=== PATIENT | female | born 1995 | race African-American/Black ===

== ENCOUNTER 2017-09-06 22:09 | Emergency (ER) | payer OTHER ==
[2017-09-06] MEDS: diphenhydrAMINE 50 MG/ML VIAL IVP (22:49)
== END 2017-09-06 23:20 | disposition home or self-care (01) ==
LOC: ER 22:09
DX: G24.02 Drug induced acute dystonia (principal); F20.9 Schizophrenia, unspecified
CPT/HCPCS: 96374; 99284-25; J1200

== ENCOUNTER 2017-09-17 14:38 | Inpatient (IN) | payer SELFPAY, OTHER ==
[2017-09-17 15:13] LABS: ADD MAN DIFF? NO
[2017-09-17 15:16] LABS: URINE HCG POC HCG NEGATIVE (Negative)
[2017-09-17 15:20] LABS: BASO % 1 % (0-3); EOS % 1 % (0-3); HEMATOCRIT 37.1 % (36.0-47.0); HEMOGLOBIN 12.4 g/dL (12.0-15.5); LYMPH # 3.4 x10^3/uL (1.0-4.8); LYMPH % 57 % (24-48); MEAN CORPUSCULAR HEMOGLOBIN 30 pg (25-35); MEAN CORPUSCULAR HGB CONC 34 g/dL (31-37); MEAN CORPUSCULAR VOLUME 90 fL (79-100); MONO # 0.4 x10^3/uL (0.0-1.1); MONO % 7 % (0-9); NEUT # 2.1 x10^3uL (1.8-7.7); NEUT % 35 % (31-73); PLATELET COUNT 207 x10^3/uL (140-400); RED BLOOD COUNT 4.12 x10^6/uL (3.50-5.40)
[2017-09-17 15:37] LABS: ACETAMIN < 2 mcg/ml (10-30); ETHANOL < 10 mg/dL (0-10); SALIC < 2.8 mg/dL (2.8-20.0)
[2017-09-17 15:39] LABS: ANION GAP 9 (6-14); BLOOD UREA NITROGEN 10 mg/dL (7-20); BUN/CREATININE RATIO 13 (6-20); CALCIUM 8.9 mg/dL (8.5-10.1); CARBON DIOXIDE 26 mmol/L (21-32); CHLORIDE 106 mmol/L (98-107); CREATININE 0.8 mg/dL (0.6-1.0); GFR 109.6; GLUCOSE 82 mg/dL (70-99); POTASSIUM 3.9 mmol/L (3.5-5.1); SODIUM 141 mmol/L (136-145)
[2017-09-17 15:41] LABS: BARBITURATES NEG (NEG); BENZODIAZEPINES NEG (NEG); CANNABINOIDS POS (NEG); COCAINE NEG (NEG); METHADONE NEG (NEG); OPIATES NEG (NEG); PHENCYCLIDINE NEG (NEG)
[2017-09-17 15:42] LABS: ALBUMIN 3.8 g/dL (3.4-5.0); ALK PHOS 96 U/L (46-116); ALT (SGPT) 12 U/L (14-59); AST (SGOT) 16 U/L (15-37); MAGNESIUM 2.1 mg/dL (1.8-2.4); TOTAL BILIRUBIN 0.6 mg/dL (0.2-1.0); TOTAL PROTEIN 7.7 g/dL (6.4-8.2)
[2017-09-17 15:44] LABS: AMPHETAMINE/METHAMPHETAMINE NEG (NEG); ETHANOL, URINE NEG (NEG)
[2017-09-17 15:46] LABS: THYROID STIM HORMONE (TSH) 0.693 uIU/mL (0.358-3.74)
[2017-09-17 15:48] LABS: CARBAM < 0.5 mcg/mL (4.0-12.0)
[2017-09-17 16:07] LABS: INR 1.1 (0.8-1.1); PARTIAL THROMBOPLASTIN TIME 29 SEC (24-38); PROTHROMBIN TIME PATIENT 13.3 SEC (11.7-14.0)
[2017-09-17] MEDS ORDERED: ONDANSETRON PF 4 MG/2 ML VIAL. IV (18:00)
[2017-09-17] MEDS ORDERED: diphenhydrAMINE HCL 25 MG CAPSULE PO (21:15)
[2017-09-17] MEDS ORDERED: ZOLPIDEM 5 MG TABLET. PO (21:15)
[2017-09-19] MEDS: HYDROcodone/APAP 5/325MG 1 TAB TABLET PO (09:12)
[2017-09-19] MEDS: ENOXAPARIN 40 MG/0.4 ML SYRINGE. SQ (17:22)
[2017-09-19] MEDS: OXcarbazepine 300 MG TABLET PO (20:29)
[2017-09-19] MEDS: FAMOTIDINE 20 MG TABLET. PO (20:30)
[2017-09-20] MEDS: OXcarbazepine 300 MG TABLET PO ×2 (10:16→20:50)
[2017-09-20] MEDS: CITALOPRAM 20 MG TABLET. PO (10:16)
[2017-09-20] MEDS: ENOXAPARIN 40 MG/0.4 ML SYRINGE. SQ (17:00)
[2017-09-20] MEDS: FAMOTIDINE 20 MG TABLET. PO (20:50)
[2017-09-21] MEDS: OXcarbazepine 300 MG TABLET PO (07:56)
[2017-09-21] MEDS: CITALOPRAM 20 MG TABLET. PO (07:56)
[2017-09-21] MEDS: ENOXAPARIN 40 MG/0.4 ML SYRINGE. SQ (14:58)
== END 2017-09-21 16:15 | disposition home or self-care (01) | DRG 918 ==
LOC: 6 SOUTH 09-18 19:42 → ER 14:38 → ED HOLD 17:31
DX: T39.312A Poisoning by propionic acid derivatives, intentional self-harm, initial encounter (principal); R45.851 Suicidal ideations; F25.0 Schizoaffective disorder, bipolar type; F32.9 Major depressive disorder, single episode, unspecified; T42.1X2A Poisoning by iminostilbenes, intentional self-harm, initial encounter; Z82.49 Family history of ischemic heart disease and other diseases of the circulatory system; Z91.5 Personal history of self-harm; F12.90 Cannabis use, unspecified, uncomplicated; F41.9 Anxiety disorder, unspecified; Z88.8 Allergy status to other drugs, medicaments and biological substances; Y92.89 Other specified places as the place of occurrence of the external cause
CPT/HCPCS: 36415; 80053; 80156; 80307; 80329; 81025; 83735; 84443; 85025; 85610; 85730; 99285; 99285-25; G0480; J1650

== ENCOUNTER 2017-12-10 22:03 | Inpatient (IN) | payer SELFPAY, OTHER ==
[2017-12-10 22:23] LABS: URINE HCG POC HCG NEGATIVE (Negative)
[2017-12-10 22:25] LABS: BILIRUBIN,URINE SMALL (NEG); CLARITY,URINE CLOUDY; COLOR,URINE AMBER; GLUCOSE,URINE NEGATIVE (NEG); NITRITE,URINE NEGATIVE (NEG); PROTEIN,URINE NEGATIVE (NEG-TRACE); UROBILINOGEN,URINE 0.2 mg/dL (0.2 mg/dL)
[2017-12-10 22:32] LABS: ADD MAN DIFF? NO
[2017-12-10 22:34] LABS: BASO # 0.1 x10^3/uL (0.0-0.2); BASO % 1 % (0-3); EOS % 0 % (0-3); HEMATOCRIT 43.9 % (36.0-47.0); HEMOGLOBIN 14.7 g/dL (12.0-15.5); LYMPH # 2.8 x10^3/uL (1.0-4.8); LYMPH % 38 % (24-48); MEAN CORPUSCULAR HEMOGLOBIN 31 pg (25-35); MEAN CORPUSCULAR HGB CONC 34 g/dL (31-37); MEAN CORPUSCULAR VOLUME 91 fL (79-100); MONO # 0.5 x10^3/uL (0.0-1.1); MONO % 6 % (0-9); NEUT # 4.1 x10^3uL (1.8-7.7); NEUT % 55 % (31-73); PLATELET COUNT 230 x10^3/uL (140-400); RED BLOOD COUNT 4.81 x10^6/uL (3.50-5.40); RED CELL DISTRIBUTION WIDTH 13.8 % (11.5-14.5); WHITE BLOOD COUNT 7.4 x10^3/uL (4.0-11.0)
[2017-12-10 22:39] LABS: BACTERIA,URINE MANY /HPF (0-FEW); RBC,URINE 0 /HPF (0-2); SQUAMOUS EPITHELIAL CELL,UR MOD /LPF
[2017-12-10 22:40] LABS: BARBITURATES NEG (NEG); BENZODIAZEPINES NEG (NEG); CANNABINOIDS POS (NEG); COCAINE NEG (NEG); METHADONE NEG (NEG); OPIATES NEG (NEG); PHENCYCLIDINE NEG (NEG)
[2017-12-10 22:41] LABS: AMPHETAMINE/METHAMPHETAMINE NEG (NEG); ETHANOL, URINE NEG (NEG)
[2017-12-10 22:45] LABS: ANION GAP 12 (6-14); BLOOD UREA NITROGEN 11 mg/dL (7-20); BUN/CREATININE RATIO 12 (6-20); CALCIUM 9.9 mg/dL (8.5-10.1); CARBON DIOXIDE 24 mmol/L (21-32); CHLORIDE 103 mmol/L (98-107); CREATININE 0.9 mg/dL (0.6-1.0); GFR 95.6; GLUCOSE 85 mg/dL (70-99); SODIUM 139 mmol/L (136-145)
[2017-12-10 22:49] LABS: ALBUMIN 4.3 g/dL (3.4-5.0); ALBUMIN/GLOBULIN RATIO 0.9 (1.0-1.7); ALK PHOS 122 U/L (46-116); ALT (SGPT) 21 U/L (14-59); AST (SGOT) 13 U/L (15-37); TOTAL BILIRUBIN 0.8 mg/dL (0.2-1.0); TOTAL PROTEIN 9.2 g/dL (6.4-8.2)
[2017-12-10 22:51] LABS: ACETAMIN < 2 mcg/ml (10-30); ETHANOL < 10 mg/dL (0-10); SALIC < 2.8 mg/dL (2.8-20.0)
[2017-12-11] MEDS: ZIPRASIDONE 20 MG CAPSULE PO (00:36)
[2017-12-11] MEDS: IV NORMAL SALINE 1000ML BAG 1,000 ML IV (00:36)
[2017-12-11] MEDS ORDERED: 0.9 % SODIUM CHLORIDE 10 ML DISP.SYRIN. IV (01:30)
[2017-12-11 15:44] LABS: ADD MAN DIFF? NO
[2017-12-11 15:48] LABS: BASO # 0.1 x10^3/uL (0.0-0.2); BASO % 1 % (0-3); EOS # 0.1 x10^3/uL (0.0-0.7); EOS % 2 % (0-3); HEMATOCRIT 36.4 % (36.0-47.0); HEMOGLOBIN 12.1 g/dL (12.0-15.5); LYMPH # 3.4 x10^3/uL (1.0-4.8); LYMPH % 61 % (24-48); MEAN CORPUSCULAR HEMOGLOBIN 30 pg (25-35); MEAN CORPUSCULAR HGB CONC 33 g/dL (31-37); MEAN CORPUSCULAR VOLUME 92 fL (79-100); MONO # 0.5 x10^3/uL (0.0-1.1); MONO % 9 % (0-9); NEUT # 1.4 x10^3uL (1.8-7.7); NEUT % 26 % (31-73); PLATELET COUNT 192 x10^3/uL (140-400); RED BLOOD COUNT 3.98 x10^6/uL (3.50-5.40); RED CELL DISTRIBUTION WIDTH 13.9 % (11.5-14.5); WHITE BLOOD COUNT 5.5 x10^3/uL (4.0-11.0)
[2017-12-11 16:19] LABS: FREE T4 1.11 ng/dL (0.76-1.46)
[2017-12-11 16:19] LABS: ALBUMIN 3.1 g/dL (3.4-5.0); ALBUMIN/GLOBULIN RATIO 0.9 (1.0-1.7); ALK PHOS 100 U/L (46-116); ALT (SGPT) 11 U/L (14-59); ANION GAP 7 (6-14); AST (SGOT) 11 U/L (15-37); BLOOD UREA NITROGEN 10 mg/dL (7-20); BUN/CREATININE RATIO 13 (6-20); CALCIUM 8.8 mg/dL (8.5-10.1); CARBON DIOXIDE 25 mmol/L (21-32); CHLORIDE 107 mmol/L (98-107); CREATININE 0.8 mg/dL (0.6-1.0); GFR 109.6; GLUCOSE 99 mg/dL (70-99); POTASSIUM 4.1 mmol/L (3.5-5.1); SODIUM 139 mmol/L (136-145); TOTAL BILIRUBIN 0.5 mg/dL (0.2-1.0); TOTAL PROTEIN 6.6 g/dL (6.4-8.2)
[2017-12-11] MEDS: ENOXAPARIN 40 MG/0.4 ML SYRINGE. SQ (16:22)
[2017-12-11] MEDS: ACETAMINOPHEN 325 MG TABLET. PO (20:10)
[2017-12-12] MEDS: ACETAMINOPHEN 325 MG TABLET. PO (13:16)
[2017-12-12] MEDS: ENOXAPARIN 40 MG/0.4 ML SYRINGE. SQ (14:50)
== END 2017-12-12 15:53 | DRG 885 ==
LOC: 5 NORTH 12-11 01:32 → ER 22:03
DX: F31.9 Bipolar disorder, unspecified (principal); R45.851 Suicidal ideations; F22 Delusional disorders; R44.0 Auditory hallucinations; F20.9 Schizophrenia, unspecified; F41.9 Anxiety disorder, unspecified; F12.10 Cannabis abuse, uncomplicated; Z88.8 Allergy status to other drugs, medicaments and biological substances; Z82.49 Family history of ischemic heart disease and other diseases of the circulatory system
CPT/HCPCS: 36415; 70450; 71046; 80053; 80307; 80329; 81001; 81025; 84439; 84443; 85025; 99285; 99285-25; G0480; J1650; J7030

== ENCOUNTER 2018-05-27 10:36 | Inpatient (IN) | payer OTHER ==
[~2018-05-27] VITALS: Ht 162.6 cm; Wt 59.0 kg
[~2018-05-27 10:36] MED LIST: ESCI10TA2 PO; OXCA150T19 PO
[2018-05-27 11:47] LABS: BILIRUBIN,URINE NEGATIVE (NEG); CLARITY,URINE TURBID; COLOR,URINE YELLOW; NITRITE,URINE POSITIVE (NEG); PROTEIN,URINE NEGATIVE (NEG-TRACE); UROBILINOGEN,URINE 0.2 mg/dL (0.2 mg/dL)
[2018-05-27 11:50] LABS: U PREG PATIENT NEGATIVE (NEG)
[2018-05-27 11:53] LABS: BACTERIA,URINE MANY /HPF (0-FEW); SQUAMOUS EPITHELIAL CELL,UR MANY /LPF; WBC,URINE TNTC /HPF (0-4)
[2018-05-27 11:54] LABS: RBC,URINE FOBS /HPF (0-2)
[2018-05-27 11:55] LABS: BARBITURATES NEG (NEG); BENZODIAZEPINES POS (NEG); CANNABINOIDS POS (NEG); COCAINE NEG (NEG); METHADONE NEG (NEG); OPIATES NEG (NEG); PHENCYCLIDINE NEG (NEG)
[2018-05-27 11:57] LABS: AMPHETAMINE/METHAMPHETAMINE NEG (NEG)
[2018-05-27 12:01] LABS: BASO # 0.1 x10^3/uL (0.0-0.2); BASO % 1 % (0-3); EOS % 1 % (0-3); HEMATOCRIT 38.8 % (36.0-47.0); HEMOGLOBIN 13.2 g/dL (12.0-15.5); LYMPH # 3.3 x10^3/uL (1.0-4.8); LYMPH % 50 % (24-48); MEAN CORPUSCULAR HEMOGLOBIN 31 pg (25-35); MEAN CORPUSCULAR HGB CONC 34 g/dL (31-37); MEAN CORPUSCULAR VOLUME 90 fL (79-100); MONO # 0.4 x10^3/uL (0.0-1.1); MONO % 6 % (0-9); NEUT # 2.8 x10^3uL (1.8-7.7); NEUT % 42 % (31-73); PLATELET COUNT 229 x10^3/uL (140-400); RED BLOOD COUNT 4.32 x10^6/uL (3.50-5.40); RED CELL DISTRIBUTION WIDTH 13.9 % (11.5-14.5); WHITE BLOOD COUNT 6.7 x10^3/uL (4.0-11.0)
[2018-05-27 12:09] LABS: CALCIUM 9.6 mg/dL (8.5-10.1); CREATININE 0.8 mg/dL (0.6-1.0); GFR 108.5; POTASSIUM 4.4 mmol/L (3.5-5.1)
[2018-05-27 12:12] LABS: SALIC 3.5 mg/dL (2.8-20.0)
[2018-05-27 12:13] LABS: ACETAMIN < 2 mcg/ml (10-30); ETHANOL < 10 mg/dL (0-10)
[2018-05-27 12:15] LABS: ALBUMIN 3.8 g/dL (3.4-5.0); DIRECT BILIRUBIN 0.1 mg/dL (0.0-0.2); TOTAL BILIRUBIN 0.4 mg/dL (0.2-1.0); TOTAL PROTEIN 8.1 g/dL (6.4-8.2)
[2018-05-27] MEDS ORDERED: CIPROFLOXACIN HCL 250 MG TABLET. PO ONE ×2 (12:30→15:15)
--- NOTE | 2018-05-27 14:42 | PHYS DOC ---
Past Medical History Past Medical History: Anxiety, Bipolar, Depression, Schizophrenia, Other Additional Past Medical Histor: Suicidal attmpt with pills X2 Past Surgical History: Other Additional Past Surgical Histo: eye surgery as child, d & c Alcohol Use: Occasionally Drug Use: None Adult General Chief Complaint Chief Complaint: PSYCH EVALUATION HPI HPI Patient is a 23 year old female who presents with pinning of homicidal ideation. Patient she wants to shoot her mother neighbors because the talking to her through the apartment wall when she goes to the bathroom or she is side of the living area. Patient states she hearing voices and syncope point constantly. Patient states she had history of suicidal ideation previously but at this time doesn't have any suicidal ideation. She complaining of chronic upper back and neck pain for years without new changes. Patient denies smoking and drinking and using drugs. Review of Systems Review of Systems Constitutional: Denies fever or chills [] Eyes: Denies change in visual acuity, redness, or eye pain [] HENT: Denies nasal congestion or sore throat [] Respiratory: Denies cough or shortness of breath [] Cardiovascular: No additional information not addressed in HPI [] GI: Denies abdominal pain, nausea, vomiting, bloody stools or diarrhea [] : Denies dysuria or hematuria [] Musculoskeletal: Denies back pain or joint pain [] Integument: Denies rash or skin lesions [] Neurologic: Denies headache, focal weakness or sensory changes [] Endocrine: Denies polyuria or polydipsia [] All other systems were reviewed and found to be within normal limits, except as documented in this note. Current Medications Current Medications Current Medications Medications (Trade) Dose Ordered Sig/Ida Start Time Stop Time Status Last Admin Dose Admin Acetaminophen (Tylenol) 650 mg PRN Q6HRS PRN 05/27/18 14:45 Al Hydroxide/Mg Hydroxide (Mylanta Plus Xs) 30 ml PRN Q3HRS PRN 05/27/18 14:45 Alprazolam (Xanax) 0.5 mg PRN Q8HRS PRN 05/27/18 14:45 UNV Bisacodyl (Dulcolax Supp) 10 mg PRN DAILY PRN 05/27/18 14:45 Calcium Carbonate/ Glycine (Tums) 500 mg PRN Q3HRS PRN 05/27/18 14:45 Ciprofloxacin (Cipro) 500 mg BID 05/27/18 21:00 UNV Ibuprofen (Motrin) 400 mg PRN Q6HRS PRN 05/27/18 14:45 UNV Ketorolac Tromethamine (Toradol 15mg Vial) 15 mg PRN Q6HRS PRN 05/27/18 14:45 06/01/18 14:44 UNV Lorazepam (Ativan) 2 mg PRN Q4HRS PRN 05/27/18 14:45 UNV Magnesium Hydroxide (Milk Of Magnesia) 2,400 mg PRN Q12HR PRN 05/27/18 14:45 Morphine Sulfate (Morphine Sulfate) 2 mg PRN Q2HR PRN 05/27/18 14:45 UNV Ondansetron HCl (Zofran) 4 mg PRN Q6HRS PRN 05/27/18 14:45 UNV Oxycodone HCl (Roxicodone) 5 mg PRN Q3HRS PRN 05/27/18 14:45 UNV Prochlorperazine (Compazine) 25 mg PRN Q12HR PRN 05/27/18 14:45 UNV Prochlorperazine Edisylate (Compazine) 10 mg PRN Q6HRS PRN 05/27/18 14:45 UNV Zolpidem Tartrate (Ambien) 5 mg PRN QHS PRN 05/27/18 14:45 UNV Allergies Allergies Allergies Coded Allergies Type Severity Reaction Last Updated Verified haloperidol Allergy Severe lock jaw 09/17/17 Yes Physical Exam Physical Exam Constitutional: Well nourished, mild distress, non-toxic appearance. [] HENT: Normocephalic, atraumatic Eyes: PERRLA, EOMI, conjunctiva normal, no discharge. [] Neck: Normal range of motion, no tenderness, supple, no stridor. [] Cardiovascular:Heart rate regular rhythm, no murmur [] Lungs & Thorax: Bilateral breath sounds clear to auscultation [] Abdomen: Bowel sounds normal, soft, no tenderness, no masses, no pulsatile masses. [] Skin: Warm, dry, no erythema, no rash. [] Back: No tenderness, no CVA tenderness. [] Extremities: No tenderness, no cyanosis, no clubbing, ROM intact, no edema. [] Neurologic: Alert and oriented X 3, normal motor function, normal sensory function, no focal deficits noted. [] Psychologic: Affect anxious homicidal ideation and hallucination Current Patient Data Vital Signs Vital Signs Date Time Temp Pulse Resp B/P (MAP) Pulse Ox O2 Delivery O2 Flow Rate FiO2 05/27/18 11:22 98.7 75 18 116/76 (89) 98 Room Air 98.7 Lab Values Laboratory Tests Test 05/27/18 11:29 05/27/18 11:39 05/27/18 11:50 Urine Collection Type Void Urine Color Yellow Urine Clarity Turbid Urine pH 6.0 Urine Specific [place] 1.025 Urine Protein Negative mg/dL (NEG-TRACE) Urine Glucose (UA) Negative mg/dL (NEG) Urine Ketones (Stick) Negative mg/dL (NEG) Urine Blood Small (NEG) Urine Nitrite Positive (NEG) Urine Bilirubin Negative (NEG) Urine Urobilinogen Dipstick 0.2 mg/dL (0.2 mg/dL) Urine Leukocyte Esterase Moderate (NEG) Urine RBC Fobs /HPF (0-2) Urine WBC Tntc /HPF (0-4) Urine Squamous Epithelial Cells Many /LPF Urine Bacteria Many /HPF (0-FEW) Urine Mucus Marked /LPF Urine Test Negative (NEG) Urine Opiates Screen Neg (NEG) Urine Methadone Screen Neg (NEG) Urine Barbiturates Neg (NEG) Urine Phencyclidine Screen Neg (NEG) Urine Amphetamine/Methamphetamine Neg (NEG) Urine Benzodiazepines Screen Pos (NEG) Urine Cocaine Screen Neg (NEG) Urine Cannabinoids Screen Pos (NEG) Urine Ethyl Alcohol Neg (NEG) POC Urine HCG, Qualitative Hcg negative (Negative) White Blood Count 6.7 x10^3/uL (4.0-11.0) Red Blood Count 4.32 x10^6/uL (3.50-5.40) Hemoglobin 13.2 g/dL (12.0-15.5) Hematocrit 38.8 % (36.0-47.0) Mean Corpuscular Volume 90 fL (79-100) Mean Corpuscular Hemoglobin 31 pg (25-35) Mean Corpuscular Hemoglobin Concent 34 g/dL (31-37) Red Cell Distribution Width 13.9 % (11.5-14.5) Platelet Count 229 x10^3/uL (140-400) Neutrophils (%) (Auto) 42 % (31-73) Lymphocytes (%) (Auto) 50 % (24-48) H Monocytes (%) (Auto) 6 % (0-9) Eosinophils (%) (Auto) 1 % (0-3) Basophils (%) (Auto) 1 % (0-3) Neutrophils # (Auto) 2.8 x10^3uL (1.8-7.7) Lymphocytes # (Auto) 3.3 x10^3/uL (1.0-4.8) Monocytes # (Auto) 0.4 x10^3/uL (0.0-1.1) Eosinophils # (Auto) 0.0 x10^3/uL (0.0-0.7) Basophils # (Auto) 0.1 x10^3/uL (0.0-0.2) Sodium Level 141 mmol/L (136-145) Potassium Level 4.4 mmol/L (3.5-5.1) Chloride Level 105 mmol/L (98-107) Carbon Dioxide Level 30 mmol/L (21-32) Anion Gap 6 (6-14) Blood Urea Nitrogen 8 mg/dL (7-20) Creatinine 0.8 mg/dL (0.6-1.0) Estimated GFR (Cockcroft-Gault) 108.5 Glucose Level 87 mg/dL (70-99) Calcium Level 9.6 mg/dL (8.5-10.1) Total Bilirubin 0.4 mg/dL (0.2-1.0) Direct Bilirubin 0.1 mg/dL (0.0-0.2) Aspartate Amino Transferase (AST) 15 U/L (15-37) Alanine Aminotransferase (ALT) 13 U/L (14-59) L Alkaline Phosphatase 114 U/L (46-116) Total Protein 8.1 g/dL (6.4-8.2) Albumin 3.8 g/dL (3.4-5.0) Salicylates Level 3.5 mg/dL (2.8-20.0) Salicylate Last Dose Date Unknown Salicylate Last Dose Time Unknown Acetaminophen Level < 2 mcg/ml (10-30) L Acetaminophen Last Dose Date Unknown Acetaminophen Last Dose Time Unknown Ethyl Alcohol Level < 10 mg/dL (0-10) Laboratory Tests 05/27/18 11:50 Laboratory Tests 05/27/18 11:50 EKG EKG [] Radiology/Procedures Radiology/Procedures [] Course & Med Decision Making Course & Med Decision Making Pertinent Labs reviewed. (See chart for details) Evaluation of patient in ER showed 23-year-old female patient with complaining of hallucination and homicidal ideation. Patient didn't have suicidal ideation. Patient had unremarkable physical exam except for hallucination and lab showed UTI. Patient was evaluated by psychiatric assessment team criteria for inpatient treatment but did was not available psychiatric bed. Plan to admit patient for inpatient treatment in this hospital and look for psychiatric bed tomorrow. Dr. Angulo accepted admission at 1436. Dragon Disclaimer Dragon Disclaimer This electronic medical record was generated, in whole or in part, using a voice recognition dictation system. Departure Departure Impression: Primary Impression: Acute psychosis Additional Impressions: Urinary tract infection Hallucination Homicidal ideation Disposition: ADMITTED INPATIENT Admitting Physician: Leanna Angulo (Accepted admission at 1436) Condition: IMPROVED Referrals: REMINGTON NORTON (PCP) Scripts No Active Prescriptions or Reported Meds Problem Qualifiers ROMEL MCGEE MD May 27, 2018 14:42
[2018-05-27] MEDS ORDERED: KETOROLAC 15 MG/ML VIAL. IV PRN (14:45)
[2018-05-27] MEDS ORDERED: ONDANSETRON PF 4 MG/2 ML VIAL. IV PRN (14:45)
[2018-05-27] MEDS ORDERED: IBUPROFEN 400 MG TABLET. PO PRN (14:45)
[2018-05-27] MEDS ORDERED: MAG HYDROX/ALUMINUM HYD/SIMETH 30 ML ORAL.SUSP PO PRN (14:45)
[2018-05-27] MEDS ORDERED: CALCIUM CARBONATE 500 MG TAB.CHEW PO PRN (14:45)
[2018-05-27] MEDS ORDERED: MAGNESIUM HYDROXIDE 2,400 MG/30 ML ORAL.SUSP. PO PRN (14:45)
[2018-05-27] MEDS ORDERED: ZOLPIDEM 5 MG TABLET. PO PRN (14:45)
[2018-05-27] MEDS ORDERED: PROCHLORPERAZINE 25 MG SUPP.RECT. PR PRN (14:45)
[2018-05-27] MEDS ORDERED: oxyCODONE IR 5 MG TABLET PO PRN (14:45)
[2018-05-27] MEDS ORDERED: PROCHLORPERAZINE 10 MG/2 ML VIAL. IV PRN (14:45)
[2018-05-27] MEDS ORDERED: MORPHINE SULFATE 2 MG/ML VIAL. IV PRN (14:45)
[2018-05-27] MEDS ORDERED: BISACODYL 10 MG SUPP.RECT. PR PRN (14:45)
[2018-05-27] MEDS ORDERED: ACETAMINOPHEN 325 MG TABLET. PO PRN (14:45)
[2018-05-27] MEDS ORDERED: ALPRAZolam 0.5 MG TABLET PO PRN (14:45)
--- NOTE | 2018-05-27 14:50 | PDOC1 ---
History and Physical Date of Admission Date of Admission DATE: 05/27/18 TIME: 14:45 Identification/Chief Complaint Chief Complaint Homicidal and suicidal Source Source: Caregiver, Chart review, Patient History of Present Illness History of Present Illness [age]-year-old -[place] female, seen at the ER with no one at bedside. Apparently history of clau, was last here December 2017 for the same, was discharged to psych inpatient facility. She claims she stayed [place] a week, and RSI only a few days - was dcd about December 2017. Comes in because of homicidal ideation towards her neighbors, history of past suicide attempts but not currently. Lives at home with mom. She claims she would overdose on pills. She has lockjaw in terms of Haldol listed as her allergy. She is cooperative, no emesis, regular food tray on table. Seen by Seema at ER Monday, no beds available hence admitted. UTI on incidental findings got Cipro at the ER. she claims she hears voices telling her to do things Past Medical History Pulmonary: No pertinent hx Psych: Anxiety, Addictions, Bipolar, Depression, Psychosis, Other Past Surgical History Past Surgical History: Other (breast reduction sx) Family History Family History: Hypertension, Other (depression) Social History Smoke: No ALCOHOL: none Drugs: Marijuana Current Problem List Problem List Problems Medical Problems: (1) Acute psychosis Status: Acute Current Medications Current Medications Current Medications Ciprofloxacin (Cipro) 250 mg 1X ONCE PO Last administered on 05/27/18at 14:34; Start 05/27/18 at 12:30; Stop 05/27/18 at 12:31; Status DC Active Scripts Active No Active Prescriptions or Reported Medications Allergies Allergies: Coded Allergies: haloperidol (Verified Allergy, Severe, lock jaw, 09/17/17) ROS Review of System A 14 point ROS was completed with the following noted as positive: Other systems reviewed and negative. \CONSTITUTIONAL: No fever or chills EYES: No recent changes SKIN: No rash or itching CARDIOVASCULAR: No chest pain, syncope, palpitations, or edema RESPIRATORY: No SOB or cough GASTROINTESTINAL: No nausea, vomiting or abdominal pain NEUROLOGICAL: No headaches or weakness ENDOCRINE: No cold or heat intolerance GENITOURINARY: No urgency or frequency of urination MUSCULOSKELETAL: No back pain or joint pain LYMPHATICS: No enlarged lymph nodes PSYCHIATRIC: No anxiety or depression Physical Exam General: Alert, Oriented X3, Cooperative, No acute distress HEENT: Atraumatic, EOMI Lungs: Clear to auscultation, Normal air movement Heart: S1S2, RRR, no thrills, no rubs, no gallops, no murmurs Cardiovascular: S1, S2 Breasts: Normal, Rt breast nml w/o mass, Lt breast nml w/o mass, Nipples normal Abdomen: Normal bowel sounds, Soft, No tenderness, No hepatosplenomegaly, No masses Rectal Exam: not examined PELVIC: Nml ext genitalia Extremities: No clubbing, No cyanosis, No edema, Normal pulses, No tenderness/ swelling Skin: No rashes, No breakdown, No significant lesion Neuro: Normal gait, Normal speech, Strength at 5/5 X4 ext, Normal tone, Sensation intact, Cranial nerves 3-12 NL, Reflexes 2+ Psych/Mental Status: Mental status NL, Mood NL Vitals Vitals Vital Signs Date Time Temp Pulse Resp B/P (MAP) Pulse Ox O2 Delivery O2 Flow Rate FiO2 05/27/18 11:22 98.7 75 18 116/76 (89) 98 Room Air 98.7 Labs Labs Laboratory Tests Test 05/27/18 11:29 05/27/18 11:39 05/27/18 11:50 Urine Collection Type Void Urine Color Yellow Urine Clarity Turbid Urine pH 6.0 Urine Specific [place] 1.025 Urine Protein Negative mg/dL (NEG-TRACE) Urine Glucose (UA) Negative mg/dL (NEG) Urine Ketones (Stick) Negative mg/dL (NEG) Urine Blood Small (NEG) Urine Nitrite Positive (NEG) Urine Bilirubin Negative (NEG) Urine Urobilinogen Dipstick 0.2 mg/dL (0.2 mg/dL) Urine Leukocyte Esterase Moderate (NEG) Urine RBC Fobs /HPF (0-2) Urine WBC Tntc /HPF (0-4) Urine Squamous Epithelial Cells Many /LPF Urine Bacteria Many /HPF (0-FEW) Urine Mucus Marked /LPF Urine Test Negative (NEG) Urine Opiates Screen Neg (NEG) Urine Methadone Screen Neg (NEG) Urine Barbiturates Neg (NEG) Urine Phencyclidine Screen Neg (NEG) Urine Amphetamine/Methamphetamine Neg (NEG) Urine Benzodiazepines Screen Pos (NEG) Urine Cocaine Screen Neg (NEG) Urine Cannabinoids Screen Pos (NEG) Urine Ethyl Alcohol Neg (NEG) Bedside Urine HCG, Qualitative Hcg negative (Negative) White Blood Count 6.7 x10^3/uL (4.0-11.0) Red Blood Count 4.32 x10^6/uL (3.50-5.40) Hemoglobin 13.2 g/dL (12.0-15.5) Hematocrit 38.8 % (36.0-47.0) Mean Corpuscular Volume 90 fL (79-100) Mean Corpuscular Hemoglobin 31 pg (25-35) Mean Corpuscular Hemoglobin Concent 34 g/dL (31-37) Red Cell Distribution Width 13.9 % (11.5-14.5) Platelet Count 229 x10^3/uL (140-400) Neutrophils (%) (Auto) 42 % (31-73) Lymphocytes (%) (Auto) 50 % (24-48) Monocytes (%) (Auto) 6 % (0-9) Eosinophils (%) (Auto) 1 % (0-3) Basophils (%) (Auto) 1 % (0-3) Neutrophils # (Auto) 2.8 x10^3uL (1.8-7.7) Lymphocytes # (Auto) 3.3 x10^3/uL (1.0-4.8) Monocytes # (Auto) 0.4 x10^3/uL (0.0-1.1) Eosinophils # (Auto) 0.0 x10^3/uL (0.0-0.7) Basophils # (Auto) 0.1 x10^3/uL (0.0-0.2) Sodium Level 141 mmol/L (136-145) Potassium Level 4.4 mmol/L (3.5-5.1) Chloride Level 105 mmol/L (98-107) Carbon Dioxide Level 30 mmol/L (21-32) Anion Gap 6 (6-14) Blood Urea Nitrogen 8 mg/dL (7-20) Creatinine 0.8 mg/dL (0.6-1.0) Estimated GFR (Cockcroft-Gault) 108.5 Glucose Level 87 mg/dL (70-99) Calcium Level 9.6 mg/dL (8.5-10.1) Total Bilirubin 0.4 mg/dL (0.2-1.0) Direct Bilirubin 0.1 mg/dL (0.0-0.2) Aspartate Amino Transf (AST/SGOT) 15 U/L (15-37) Alanine Aminotransferase (ALT/SGPT) 13 U/L (14-59) Alkaline Phosphatase 114 U/L (46-116) Total Protein 8.1 g/dL (6.4-8.2) Albumin 3.8 g/dL (3.4-5.0) Salicylates Level 3.5 mg/dL (2.8-20.0) Salicylate Last Dose Date Unknown Salicylate Last Dose Time Unknown Acetaminophen Level < 2 mcg/ml (10-30) Acetaminophen Last Dose Date Unknown Acetaminophen Last Dose Time Unknown Ethyl Alcohol Level < 10 mg/dL (0-10) Laboratory Tests Test 05/27/18 11:29 05/27/18 11:39 05/27/18 11:50 Urine Collection Type Void Urine Color Yellow Urine Clarity Turbid Urine pH 6.0 Urine Specific [place] 1.025 Urine Protein Negative mg/dL (NEG-TRACE) Urine Glucose (UA) Negative mg/dL (NEG) Urine Ketones (Stick) Negative mg/dL (NEG) Urine Blood Small (NEG) Urine Nitrite Positive (NEG) Urine Bilirubin Negative (NEG) Urine Urobilinogen Dipstick 0.2 mg/dL (0.2 mg/dL) Urine Leukocyte Esterase Moderate (NEG) Urine RBC Fobs /HPF (0-2) Urine WBC Tntc /HPF (0-4) Urine Squamous Epithelial Cells Many /LPF Urine Bacteria Many /HPF (0-FEW) Urine Mucus Marked /LPF Urine Test Negative (NEG) Urine Opiates Screen Neg (NEG) Urine Methadone Screen Neg (NEG) Urine Barbiturates Neg (NEG) Urine Phencyclidine Screen Neg (NEG) Urine Amphetamine/Methamphetamine Neg (NEG) Urine Benzodiazepines Screen Pos (NEG) Urine Cocaine Screen Neg (NEG) Urine Cannabinoids Screen Pos (NEG) Urine Ethyl Alcohol Neg (NEG) Bedside Urine HCG, Qualitative Hcg negative (Negative) White Blood Count 6.7 x10^3/uL (4.0-11.0) Red Blood Count 4.32 x10^6/uL (3.50-5.40) Hemoglobin 13.2 g/dL (12.0-15.5) Hematocrit 38.8 % (36.0-47.0) Mean Corpuscular Volume 90 fL (79-100) Mean Corpuscular Hemoglobin 31 pg (25-35) Mean Corpuscular Hemoglobin Concent 34 g/dL (31-37) Red Cell Distribution Width 13.9 % (11.5-14.5) Platelet Count 229 x10^3/uL (140-400) Neutrophils (%) (Auto) 42 % (31-73) Lymphocytes (%) (Auto) 50 % (24-48) Monocytes (%) (Auto) 6 % (0-9) Eosinophils (%) (Auto) 1 % (0-3) Basophils (%) (Auto) 1 % (0-3) Neutrophils # (Auto) 2.8 x10^3uL (1.8-7.7) Lymphocytes # (Auto) 3.3 x10^3/uL (1.0-4.8) Monocytes # (Auto) 0.4 x10^3/uL (0.0-1.1) Eosinophils # (Auto) 0.0 x10^3/uL (0.0-0.7) Basophils # (Auto) 0.1 x10^3/uL (0.0-0.2) Sodium Level 141 mmol/L (136-145) Potassium Level 4.4 mmol/L (3.5-5.1) Chloride Level 105 mmol/L (98-107) Carbon Dioxide Level 30 mmol/L (21-32) Anion Gap 6 (6-14) Blood Urea Nitrogen 8 mg/dL (7-20) Creatinine 0.8 mg/dL (0.6-1.0) Estimated GFR (Cockcroft-Gault) 108.5 Glucose Level 87 mg/dL (70-99) Calcium Level 9.6 mg/dL (8.5-10.1) Total Bilirubin 0.4 mg/dL (0.2-1.0) Direct Bilirubin 0.1 mg/dL (0.0-0.2) Aspartate Amino Transf (AST/SGOT) 15 U/L (15-37) Alanine Aminotransferase (ALT/SGPT) 13 U/L (14-59) Alkaline Phosphatase 114 U/L (46-116) Total Protein 8.1 g/dL (6.4-8.2) Albumin 3.8 g/dL (3.4-5.0) Salicylates Level 3.5 mg/dL (2.8-20.0) Salicylate Last Dose Date Unknown Salicylate Last Dose Time Unknown Acetaminophen Level < 2 mcg/ml (10-30) Acetaminophen Last Dose Date Unknown Acetaminophen Last Dose Time Unknown Ethyl Alcohol Level < 10 mg/dL (0-10) VTE Prophylaxis Ordered VTE Prophylaxis Devices: Yes VTE Pharmacological Prophylaxi: Yes Assessment/Plan Assessment/Plan Homicidal ideation Suicidal ideation Clau, depression NOS History of past suicide attempts Schizophrenia, paranoid delusions Incidental UTI Plan: Cipro by mouth Urine culture Regular diet PAT Assessment tomorrow Discharge to inpatient psych once bed available Seen at MARTÍNEZ MONROY MD May 27, 2018 14:50
[2018-05-27 17:42] VITALS: BP 110/61
[2018-05-27 19:25] VITALS: BP 119/79
[2018-05-27 23:06] VITALS: BP 107/64
[2018-05-27] MEDS: CIPROFLOXACIN HCL 250 MG TABLET. PO SCH (23:06)
[2018-05-28 02:49] VITALS: BP 109/55
[2018-05-28 07:38] VITALS: BP 110/62
--- NOTE | 2018-05-28 08:05 | DISCH ---
DISCHARGE DISCHARGE INFORMATION: FINAL DIAGNOSIS Problems Medical Problems: (1) Acute psychosis Status: Acute (2) Hallucination Status: Acute (3) Urinary tract infection Status: Acute CONDITION ON DISCHARGE: Stable CODE STATUS: Code Status: Full PENITENTIARY: SNF STAY <30 DAYS: Yes HOSPICE: HOSPICE: No HOSPICE EVAL & TREAT: No LTAC: ADMIT TO LTAC: No POST DISCHARGE ORDERS: ACTIVITY ORDERS: No restrictions, Activity as tolerated WEIGHT BEARING STATUS: No restrictions, As tolerated DIET AFTER DISCHARGE: Regular CHECKS AFTER DISCHARGE: CHECKS AFTER DISCHARGE: Check blood press - daily, Weigh Yourself Daily TREATMENT/EQUIPMENT ORDERS: ADAPTIVE EQUIPMENT NEEDED: None DISCHARGE MEDICATIONS: Home Meds No Active Prescriptions or Reported Meds MARTÍNEZ LAM MD May 28, 2018 08:05
[2018-05-28] MEDS ORDERED: diphenhydrAMINE HCL 25 MG CAPSULE PO PRN (08:15)
[2018-05-28] MEDS: CIPROFLOXACIN HCL 250 MG TABLET. PO SCH (09:00)
--- NOTE | 2018-05-28 10:29 | PDOC3 ---
Discharge Summary Visit Information Date of Admission: May 27, 2018 Date of Discharge: May 28, 2018 Admitting Diagnosis Comment: Homicidal ideation Suicidal ideation Clau, depression NOS History of past suicide attempts Schizophrenia, paranoid delusions Incidental UTI Final Diagnosis Problems Medical Problems: (1) Acute psychosis Status: Acute (2) Hallucination Status: Acute (3) Urinary tract infection Status: Acute Brief Hospital Course Allergies Allergies Coded Allergies Type Severity Reaction Last Updated Verified haloperidol Allergy Severe lock jaw 09/17/17 Yes Vital Signs Vital Signs Date Time Temp Pulse Resp B/P (MAP) Pulse Ox O2 Delivery O2 Flow Rate FiO2 05/28/18 07:38 97.9 66 16 110/62 (78) 100 Room Air 97.9 Lab Results Laboratory Tests Test 05/27/18 11:29 05/27/18 11:39 05/27/18 11:50 Urine Collection Type Void Urine Color Yellow Urine Clarity Turbid Urine pH 6.0 Urine Specific [place] 1.025 Urine Protein Negative mg/dL (NEG-TRACE) Urine Glucose (UA) Negative mg/dL (NEG) Urine Ketones (Stick) Negative mg/dL (NEG) Urine Blood Small (NEG) Urine Nitrite Positive (NEG) Urine Bilirubin Negative (NEG) Urine Urobilinogen Dipstick 0.2 mg/dL (0.2 mg/dL) Urine Leukocyte Esterase Moderate (NEG) Urine RBC Fobs /HPF (0-2) Urine WBC Tntc /HPF (0-4) Urine Squamous Epithelial Cells Many /LPF Urine Bacteria Many /HPF (0-FEW) Urine Mucus Marked /LPF Urine Test Negative (NEG) Urine Opiates Screen Neg (NEG) Urine Methadone Screen Neg (NEG) Urine Barbiturates Neg (NEG) Urine Phencyclidine Screen Neg (NEG) Urine Amphetamine/Methamphetamine Neg (NEG) Urine Benzodiazepines Screen Pos (NEG) Urine Cocaine Screen Neg (NEG) Urine Cannabinoids Screen Pos (NEG) Urine Ethyl Alcohol Neg (NEG) Bedside Urine HCG, Qualitative Hcg negative (Negative) White Blood Count 6.7 x10^3/uL (4.0-11.0) Red Blood Count 4.32 x10^6/uL (3.50-5.40) Hemoglobin 13.2 g/dL (12.0-15.5) Hematocrit 38.8 % (36.0-47.0) Mean Corpuscular Volume 90 fL (79-100) Mean Corpuscular Hemoglobin 31 pg (25-35) Mean Corpuscular Hemoglobin Concent 34 g/dL (31-37) Red Cell Distribution Width 13.9 % (11.5-14.5) Platelet Count 229 x10^3/uL (140-400) Neutrophils (%) (Auto) 42 % (31-73) Lymphocytes (%) (Auto) 50 % (24-48) Monocytes (%) (Auto) 6 % (0-9) Eosinophils (%) (Auto) 1 % (0-3) Basophils (%) (Auto) 1 % (0-3) Neutrophils # (Auto) 2.8 x10^3uL (1.8-7.7) Lymphocytes # (Auto) 3.3 x10^3/uL (1.0-4.8) Monocytes # (Auto) 0.4 x10^3/uL (0.0-1.1) Eosinophils # (Auto) 0.0 x10^3/uL (0.0-0.7) Basophils # (Auto) 0.1 x10^3/uL (0.0-0.2) Sodium Level 141 mmol/L (136-145) Potassium Level 4.4 mmol/L (3.5-5.1) Chloride Level 105 mmol/L (98-107) Carbon Dioxide Level 30 mmol/L (21-32) Anion Gap 6 (6-14) Blood Urea Nitrogen 8 mg/dL (7-20) Creatinine 0.8 mg/dL (0.6-1.0) Estimated GFR (Cockcroft-Gault) 108.5 Glucose Level 87 mg/dL (70-99) Calcium Level 9.6 mg/dL (8.5-10.1) Total Bilirubin 0.4 mg/dL (0.2-1.0) Direct Bilirubin 0.1 mg/dL (0.0-0.2) Aspartate Amino Transf (AST/SGOT) 15 U/L (15-37) Alanine Aminotransferase (ALT/SGPT) 13 U/L (14-59) Alkaline Phosphatase 114 U/L (46-116) Total Protein 8.1 g/dL (6.4-8.2) Albumin 3.8 g/dL (3.4-5.0) Salicylates Level 3.5 mg/dL (2.8-20.0) Salicylate Last Dose Date Unknown Salicylate Last Dose Time Unknown Acetaminophen Level < 2 mcg/ml (10-30) Acetaminophen Last Dose Date Unknown Acetaminophen Last Dose Time Unknown Ethyl Alcohol Level < 10 mg/dL (0-10) Laboratory Tests Test 05/27/18 11:29 05/27/18 11:39 05/27/18 11:50 Urine Collection Type Void Urine Color Yellow Urine Clarity Turbid Urine pH 6.0 Urine Specific [place] 1.025 Urine Protein Negative mg/dL (NEG-TRACE) Urine Glucose (UA) Negative mg/dL (NEG) Urine Ketones (Stick) Negative mg/dL (NEG) Urine Blood Small (NEG) Urine Nitrite Positive (NEG) Urine Bilirubin Negative (NEG) Urine Urobilinogen Dipstick 0.2 mg/dL (0.2 mg/dL) Urine Leukocyte Esterase Moderate (NEG) Urine RBC Fobs /HPF (0-2) Urine WBC Tntc /HPF (0-4) Urine Squamous Epithelial Cells Many /LPF Urine Bacteria Many /HPF (0-FEW) Urine Mucus Marked /LPF Urine Test Negative (NEG) Urine Opiates Screen Neg (NEG) Urine Methadone Screen Neg (NEG) Urine Barbiturates Neg (NEG) Urine Phencyclidine Screen Neg (NEG) Urine Amphetamine/Methamphetamine Neg (NEG) Urine Benzodiazepines Screen Pos (NEG) Urine Cocaine Screen Neg (NEG) Urine Cannabinoids Screen Pos (NEG) Urine Ethyl Alcohol Neg (NEG) Bedside Urine HCG, Qualitative Hcg negative (Negative) White Blood Count 6.7 x10^3/uL (4.0-11.0) Red Blood Count 4.32 x10^6/uL (3.50-5.40) Hemoglobin 13.2 g/dL (12.0-15.5) Hematocrit 38.8 % (36.0-47.0) Mean Corpuscular Volume 90 fL (79-100) Mean Corpuscular Hemoglobin 31 pg (25-35) Mean Corpuscular Hemoglobin Concent 34 g/dL (31-37) Red Cell Distribution Width 13.9 % (11.5-14.5) Platelet Count 229 x10^3/uL (140-400) Neutrophils (%) (Auto) 42 % (31-73) Lymphocytes (%) (Auto) 50 % (24-48) Monocytes (%) (Auto) 6 % (0-9) Eosinophils (%) (Auto) 1 % (0-3) Basophils (%) (Auto) 1 % (0-3) Neutrophils # (Auto) 2.8 x10^3uL (1.8-7.7) Lymphocytes # (Auto) 3.3 x10^3/uL (1.0-4.8) Monocytes # (Auto) 0.4 x10^3/uL (0.0-1.1) Eosinophils # (Auto) 0.0 x10^3/uL (0.0-0.7) Basophils # (Auto) 0.1 x10^3/uL (0.0-0.2) Sodium Level 141 mmol/L (136-145) Potassium Level 4.4 mmol/L (3.5-5.1) Chloride Level 105 mmol/L (98-107) Carbon Dioxide Level 30 mmol/L (21-32) Anion Gap 6 (6-14) Blood Urea Nitrogen 8 mg/dL (7-20) Creatinine 0.8 mg/dL (0.6-1.0) Estimated GFR (Cockcroft-Gault) 108.5 Glucose Level 87 mg/dL (70-99) Calcium Level 9.6 mg/dL (8.5-10.1) Total Bilirubin 0.4 mg/dL (0.2-1.0) Direct Bilirubin 0.1 mg/dL (0.0-0.2) Aspartate Amino Transf (AST/SGOT) 15 U/L (15-37) Alanine Aminotransferase (ALT/SGPT) 13 U/L (14-59) Alkaline Phosphatase 114 U/L (46-116) Total Protein 8.1 g/dL (6.4-8.2) Albumin 3.8 g/dL (3.4-5.0) Salicylates Level 3.5 mg/dL (2.8-20.0) Salicylate Last Dose Date Unknown Salicylate Last Dose Time Unknown Acetaminophen Level < 2 mcg/ml (10-30) Acetaminophen Last Dose Date Unknown Acetaminophen Last Dose Time Unknown Ethyl Alcohol Level < 10 mg/dL (0-10) Brief Hospital Course Ms. Marshall is a 23 old [sex] who presented with [ ] 2 3-year-old -[place] female, seen at the ER with no one at bedside. Apparently history of clau, was last here December 2017 for the same, was discharged to psych inpatient facility. She claims she stayed [place] a week, and RSI only a few days - was dcd about December 2017. Comes in because of homicidal ideation towards her neighbors, history of past suicide attempts but not currently. Lives at home with mom. She claims she would overdose on pills. She has lockjaw in terms of Haldol listed as her allergy. She is cooperative, no emesis, regular food tray on table. Seen by Pat at ER Monday, no beds available hence admitted. UTI on incidental findings got Cipro at the ER. she claims she hears voices telling her to do things COURSE:a waiting сергей - likely dc today out of hospital either OP or inpt psych NO meds needed Discharge Information Condition at Discharge: Improved, Stable Disposition/Orders: Other (facilty psych) No Active Prescriptions or Reported Meds MARTÍNEZ LAM MD May 28, 2018 10:28
[2018-05-28 10:31] VITALS: BP 122/73
[2018-05-28 15:20] VITALS: BP 114/59
[2018-05-28] MEDS ORDERED: LACTOBACILLUS RHAMNOSUS GG 1 CAPSULE. PO SCH (21:00)
== END 2018-05-28 16:40 | disposition short-term general hospital (02) | DRG 690 ==
LOC: ER 10:36 → 6 SOUTH 14:36
PROVIDERS: ADMIT Internal Medicine; ATTEND Internal Medicine
DX: N39.0 Urinary tract infection, site not specified (principal); F20.0 Paranoid schizophrenia; R45.851 Suicidal ideations; F32.9 Major depressive disorder, single episode, unspecified; R45.850 Homicidal ideations; F41.9 Anxiety disorder, unspecified; Z82.49 Family history of ischemic heart disease and other diseases of the circulatory system; Z81.8 Family history of other mental and behavioral disorders; Z91.5 Personal history of self-harm; M54.2 Cervicalgia; M54.9 Dorsalgia, unspecified
CPT/HCPCS: 36415; 80048; 80076; 80307; 80329; 81001; 81025; 85025; 87086; G0480; G6039; Q0163; 99285-25; G0479

== ENCOUNTER 2018-06-09 10:45 | Emergency (ER) | payer OTHER ==
[~2018-06-09] VITALS: Ht 162.6 cm; Wt 66.7 kg
[2018-06-09 10:53] VITALS: BP 127/75
[2018-06-09 11:17] LABS: BILIRUBIN,URINE NEGATIVE (NEG); CLARITY,URINE CLEAR; NITRITE,URINE NEGATIVE (NEG); PROTEIN,URINE NEGATIVE (NEG-TRACE)
[2018-06-09 11:18] LABS: COLOR,URINE YELLOW
--- NOTE | 2018-06-09 11:18 | PHYS DOC ---
Past Medical History Past Medical History: Anxiety, Bipolar, Depression, Schizophrenia, Other Additional Past Medical Histor: Suicidal attmpt with pills X2 Past Surgical History: Other Additional Past Surgical Histo: eye surgery as child,D&C,BREAST REDUCTION Additional Information: 1 CIGARETTE A DAY Alcohol Use: Occasionally Drug Use: None Adult General Chief Complaint Chief Complaint: PAIN ON URINATION [facility] HPI Patient is a 23 year old female who presents with complains of dysuria intermittently for approximately 2 weeks. Patient also states that she started her menstrual period yesterday. Patient is here for further evaluation and management. Patient denies any other acute complaints at this time. Review of Systems Review of Systems Constitutional: Denies fever or chills [] Eyes: Denies change in visual acuity, redness, or eye pain [] HENT: Denies nasal congestion or sore throat [] Respiratory: Denies cough or shortness of breath [] Cardiovascular: No additional information not addressed in HPI [] GI: Denies abdominal pain, nausea, vomiting, bloody stools or diarrhea [] : Denies dysuria or hematuria [] Musculoskeletal: Denies back pain or joint pain [] Integument: Denies rash or skin lesions [] Neurologic: Denies headache, focal weakness or sensory changes [] Endocrine: Denies polyuria or polydipsia [] All other systems were reviewed and found to be within normal limits, except as documented in this note. Allergies Allergies Allergies Coded Allergies Type Severity Reaction Last Updated Verified haloperidol Allergy Severe lock jaw 09/17/17 Yes Physical Exam Physical Exam Constitutional: Well developed, well nourished, no acute distress, non-toxic appearance. [] HENT: Normocephalic, atraumatic, bilateral external ears normal, oropharynx moist, no oral exudates, nose normal. [] Eyes: PERRLA, EOMI, conjunctiva normal, no discharge. [] Neck: Normal range of motion, no tenderness, supple, no stridor. [] Cardiovascular:Heart rate regular rhythm, no murmur [] Lungs & Thorax: Bilateral breath sounds clear to auscultation [] Abdomen: Bowel sounds normal, soft, no tenderness, no masses, no pulsatile masses. [] Skin: Warm, dry, no erythema, no rash. [] Back: No tenderness, no CVA tenderness. [] Extremities: No tenderness, no cyanosis, no clubbing, ROM intact, no edema. [] Neurologic: Alert and oriented X 3, normal motor function, normal sensory function, no focal deficits noted. [] Psychologic: Affect normal, judgement normal, mood normal. [] Current Patient Data Vital Signs Vital Signs Date Time Temp Pulse Resp B/P (MAP) Pulse Ox O2 Delivery O2 Flow Rate FiO2 06/09/18 10:53 98.5 95 16 127/75 (92) 97 Room Air 98.5 Lab Values Laboratory Tests Test 06/09/18 11:00 06/09/18 11:07 Urine Collection Type Unknown Urine Color Yellow Urine Clarity Clear Urine pH 7.0 Urine Specific [place] 1.025 Urine Protein Negative mg/dL (NEG-TRACE) Urine Glucose (UA) Negative mg/dL (NEG) Urine Ketones (Stick) Trace mg/dL (NEG) Urine Blood Large (NEG) Urine Nitrite Negative (NEG) Urine Bilirubin Negative (NEG) Urine Urobilinogen Dipstick 1.0 mg/dL (0.2 mg/dL) Urine Leukocyte Esterase Moderate (NEG) Urine RBC Tntc /HPF (0-2) Urine WBC 5-10 /HPF (0-4) Urine Squamous Epithelial Cells Many /LPF Urine Bacteria Mod /HPF (0-FEW) Urine Mucus Mod /LPF POC Urine HCG, Qualitative Hcg negative (Negative) EKG EKG [] Radiology/Procedures Radiology/Procedures [] Course & Med Decision Making Course & Med Decision Making Pertinent Labs and Imaging studies reviewed. (See chart for details) [] Dragon Disclaimer Dragon Disclaimer This electronic medical record was generated, in whole or in part, using a voice recognition dictation system. Departure Departure Impression: Primary Impression: Menstrual cycle problem Additional Impression: Dysuria Disposition: HOME, SELF-CARE Condition: STABLE Referrals: REMINGTON NORTON (PCP) Scripts No Active Prescriptions or Reported Meds Problem Qualifiers ZORA GRIFFITH MD Jun 09, 2018 11:18
[2018-06-09 11:25] LABS: RBC,URINE TNTC /HPF (0-2); SQUAMOUS EPITHELIAL CELL,UR MANY /LPF
[2018-06-09 11:26] LABS: BACTERIA,URINE MOD /HPF (0-FEW)
== END 2018-06-09 12:07 | disposition home or self-care (01) ==
LOC: ER 10:45
DX: R30.0 Dysuria (principal); N92.6 Irregular menstruation, unspecified; F31.9 Bipolar disorder, unspecified; F20.9 Schizophrenia, unspecified; F41.9 Anxiety disorder, unspecified; Z91.5 Personal history of self-harm; F17.210 Nicotine dependence, cigarettes, uncomplicated; Z88.8 Allergy status to other drugs, medicaments and biological substances
CPT/HCPCS: 81001; 81025; 99283

== ENCOUNTER 2018-06-22 10:59 | Emergency (ER) | payer OTHER ==
[~2018-06-22] VITALS: Ht 162.6 cm; Wt 68.9 kg
[2018-06-22 11:48] LABS: BILIRUBIN,URINE NEGATIVE (NEG); CLARITY,URINE CLEAR; COLOR,URINE YELLOW; NITRITE,URINE NEGATIVE (NEG); PROTEIN,URINE NEGATIVE (NEG-TRACE)
[2018-06-22 12:06] LABS: BARBITURATES NEG (NEG); BENZODIAZEPINES POS (NEG); CANNABINOIDS POS (NEG); COCAINE NEG (NEG); METHADONE NEG (NEG); OPIATES NEG (NEG); PHENCYCLIDINE NEG (NEG)
[2018-06-22 12:12] LABS: AMPHETAMINE/METHAMPHETAMINE NEG (NEG)
--- NOTE | 2018-06-22 12:26 | PHYS DOC ---
Past Medical History Past Medical History: Anxiety, Bipolar, Depression, Schizophrenia, Other Additional Past Medical Histor: Suicidal attmpt with pills X2 Past Surgical History: Other Additional Past Surgical Histo: eye surgery as child,D&C,BREAST REDUCTION Alcohol Use: Occasionally Drug Use: None Adult General Chief Complaint Chief Complaint: SUICDAL IDEATION HPI HPI Patient is a 23-year-old female who presents with report of suicidal thoughts. Patient indicates that she had recently been admitted for management of her bipolar and states that she had stopped taking her medications cold turkey because she was having negative side effects associated with them. She states that since that time she has been having thoughts of suicide but denies any actual plan. Patient states that she is getting scared at this point that she may do something to harm herself. Patient is requesting placement to get started on a new medication without negative side effects. Review of Systems Review of Systems Constitutional: Denies fever or chills [] Respiratory: Denies cough or shortness of breath [] Cardiovascular: Denies chest pain[] GI: Denies abdominal pain, nausea, vomiting [] Psychiatric: Admits to depression and suicidal ideations. Denies homicidal ideations. [] All other systems were reviewed and found to be within normal limits, except as documented in this note. Current Medications Current Medications Current Medications Medications (Trade) Dose Ordered Sig/Ida Start Time Stop Time Status Last Admin Dose Admin Ibuprofen (Motrin) 600 mg 1X ONCE 06/22/18 14:00 06/22/18 14:01 DC 06/22/18 13:56 600 MG Allergies Allergies Allergies Coded Allergies Type Severity Reaction Last Updated Verified haloperidol Allergy Severe lock jaw 09/17/17 Yes fluoxetine Allergy Intermediate LOCKJAW 06/22/18 Yes Physical Exam Physical Exam Constitutional: Well developed, well nourished, no acute distress, non-toxic appearance. [] HENT: Normocephalic, atraumatic, bilateral external ears normal, oropharynx moist, no oral exudates, nose normal. [] Eyes: PERRLA, EOMI, conjunctiva normal, no discharge. [] Neck: Normal range of motion, no tenderness, supple, no stridor. [] Cardiovascular:Heart rate regular rhythm, no murmur [] Lungs & Thorax: Bilateral breath sounds clear to auscultation [] Abdomen: Bowel sounds normal, soft, no tenderness, no masses, no pulsatile masses. [] Skin: Warm, dry, no erythema, no rash. [] Extremities: No tenderness, no cyanosis, no clubbing, ROM intact, no edema. [] Neurologic: Alert and oriented X 3, no focal deficits noted. [] Psychologic: Affect flat with depressed mood. [] Current Patient Data Vital Signs Vital Signs Date Time Temp Pulse Resp B/P (MAP) Pulse Ox O2 Delivery O2 Flow Rate FiO2 06/22/18 12:38 79 18 126/84 (98) 100 Room Air Lab Values Laboratory Tests Test 06/22/18 11:13 06/22/18 11:20 06/22/18 12:57 06/22/18 13:40 Urine Collection Type Unknown Urine Color Yellow Urine Clarity Clear Urine pH 7.0 Urine Specific [place] 1.025 Urine Protein Negative mg/dL (NEG-TRACE) Urine Glucose (UA) Negative mg/dL (NEG) Urine Ketones (Stick) Negative mg/dL (NEG) Urine Blood Negative (NEG) Urine Nitrite Negative (NEG) Urine Bilirubin Negative (NEG) Urine Urobilinogen Dipstick 1.0 mg/dL (0.2 mg/dL) Urine Leukocyte Esterase Negative (NEG) Urine RBC 1-2 /HPF (0-2) Urine WBC Occ /HPF (0-4) Urine Squamous Epithelial Cells Mod /LPF Urine Bacteria Few /HPF (0-FEW) Urine Mucus Marked /LPF Urine Opiates Screen Neg (NEG) Urine Methadone Screen Neg (NEG) Urine Barbiturates Neg (NEG) Urine Phencyclidine Screen Neg (NEG) Urine Amphetamine/Methamphetamine Neg (NEG) Urine Benzodiazepines Screen Pos (NEG) Urine Cocaine Screen Neg (NEG) Urine Cannabinoids Screen Pos (NEG) Urine Ethyl Alcohol Neg (NEG) POC Urine HCG, Qualitative Hcg negative (Negative) Sodium Level 142 mmol/L (136-145) Potassium Level 4.9 mmol/L (3.5-5.1) Chloride Level 106 mmol/L (98-107) Carbon Dioxide Level 26 mmol/L (21-32) Anion Gap 10 (6-14) Blood Urea Nitrogen 6 mg/dL (7-20) L Creatinine 0.6 mg/dL (0.6-1.0) Estimated GFR (Cockcroft-Gault) 151.3 BUN/Creatinine Ratio 10 (6-20) Glucose Level 82 mg/dL (70-99) Calcium Level 9.3 mg/dL (8.5-10.1) Total Bilirubin 0.3 mg/dL (0.2-1.0) Aspartate Amino Transferase (AST) 26 U/L (15-37) Alanine Aminotransferase (ALT) 27 U/L (14-59) Alkaline Phosphatase 105 U/L (46-116) Total Protein 7.5 g/dL (6.4-8.2) Albumin 3.6 g/dL (3.4-5.0) Albumin/Globulin Ratio 0.9 (1.0-1.7) L Salicylates Level < 2.8 mg/dL (2.8-20.0) L Salicylate Last Dose Date Unknown Salicylate Last Dose Time Unknown Acetaminophen Level < 2 mcg/ml (10-30) L Acetaminophen Last Dose Date Unknown Acetaminophen Last Dose Time Unknown Ethyl Alcohol Level < 10 mg/dL (0-10) White Blood Count 5.3 x10^3/uL (4.0-11.0) Red Blood Count 4.16 x10^6/uL (3.50-5.40) Hemoglobin 12.5 g/dL (12.0-15.5) Hematocrit 37.4 % (36.0-47.0) Mean Corpuscular Volume 90 fL (79-100) Mean Corpuscular Hemoglobin 30 pg (25-35) Mean Corpuscular Hemoglobin Concent 34 g/dL (31-37) Red Cell Distribution Width 14.9 % (11.5-14.5) H Platelet Count 221 x10^3/uL (140-400) Neutrophils (%) (Auto) 36 % (31-73) Lymphocytes (%) (Auto) 56 % (24-48) H Monocytes (%) (Auto) 6 % (0-9) Eosinophils (%) (Auto) 1 % (0-3) Basophils (%) (Auto) 1 % (0-3) Neutrophils # (Auto) 1.9 x10^3uL (1.8-7.7) Lymphocytes # (Auto) 3.0 x10^3/uL (1.0-4.8) Monocytes # (Auto) 0.3 x10^3/uL (0.0-1.1) Eosinophils # (Auto) 0.1 x10^3/uL (0.0-0.7) Basophils # (Auto) 0.0 x10^3/uL (0.0-0.2) Laboratory Tests 06/22/18 13:40 Laboratory Tests 06/22/18 12:57 EKG EKG [] Radiology/Procedures Radiology/Procedures [] Course & Med Decision Making Course & Med Decision Making Pertinent Labs and Imaging studies reviewed. (See chart for details) Patient seen by PAT team and deemed appropriate for inpatient management. Patient has been accepted to [facility] for medical management. Dragon Disclaimer Dragon Disclaimer This electronic medical record was generated, in whole or in part, using a voice recognition dictation system. Departure Departure Impression: Primary Impression: Suicidal ideation Disposition: HOME, SELF-CARE Condition: STABLE Referrals: REMINGTON NORTON (PCP) Patient Instructions: Suicidal Feelings, How to Help Yourself Additional Instructions: Present to [facility] as instructed. Scripts No Active Prescriptions or Reported Meds MELA HERNANDEZ Jr. DO Jun 22, 2018 12:26
[2018-06-22 12:29] LABS: BACTERIA,URINE FEW /HPF (0-FEW); SQUAMOUS EPITHELIAL CELL,UR MOD /LPF; WBC,URINE OCC /HPF (0-4)
[2018-06-22 12:38] VITALS: BP 126/84
[2018-06-22 13:15] LABS: CALCIUM 9.3 mg/dL (8.5-10.1); CREATININE 0.6 mg/dL (0.6-1.0); GFR 151.3; POTASSIUM 4.9 mmol/L (3.5-5.1)
[2018-06-22 13:20] LABS: ACETAMIN < 2 mcg/ml (10-30); ETHANOL < 10 mg/dL (0-10); SALIC < 2.8 mg/dL (2.8-20.0)
[2018-06-22 13:21] LABS: ALBUMIN 3.6 g/dL (3.4-5.0); ALBUMIN/GLOBULIN RATIO 0.9 (1.0-1.7); TOTAL BILIRUBIN 0.3 mg/dL (0.2-1.0); TOTAL PROTEIN 7.5 g/dL (6.4-8.2)
[2018-06-22 13:48] LABS: BASO % 1 % (0-3); EOS # 0.1 x10^3/uL (0.0-0.7); EOS % 1 % (0-3); HEMATOCRIT 37.4 % (36.0-47.0); HEMOGLOBIN 12.5 g/dL (12.0-15.5); LYMPH % 56 % (24-48); MEAN CORPUSCULAR HEMOGLOBIN 30 pg (25-35); MEAN CORPUSCULAR HGB CONC 34 g/dL (31-37); MEAN CORPUSCULAR VOLUME 90 fL (79-100); MONO # 0.3 x10^3/uL (0.0-1.1); MONO % 6 % (0-9); NEUT # 1.9 x10^3uL (1.8-7.7); NEUT % 36 % (31-73); PLATELET COUNT 221 x10^3/uL (140-400); RED BLOOD COUNT 4.16 x10^6/uL (3.50-5.40); RED CELL DISTRIBUTION WIDTH 14.9 % (11.5-14.5); WHITE BLOOD COUNT 5.3 x10^3/uL (4.0-11.0)
[2018-06-22] MEDS ORDERED: IBUPROFEN 600 MG TABLET. PO ONE (14:00)
[2018-06-22 19:47] LABS: CREATININE ISTAT 0.6 mg/dL (0.5-1.4); HEMOGLOBIN ISTAT 11.6 g/dL (12-15); ION CA ISTAT 1.11 mmol/L (1.13-1.32); POTASSIUM ISTAT 4.6 mmol/L (3.5-5.0)
== END 2018-06-22 14:43 | disposition home or self-care (01) ==
LOC: ER 10:59
DX: R45.851 Suicidal ideations (principal); F31.9 Bipolar disorder, unspecified; F20.9 Schizophrenia, unspecified; F41.9 Anxiety disorder, unspecified; Z88.8 Allergy status to other drugs, medicaments and biological substances
CPT/HCPCS: 36415; 80047; 80053; 80307; 80329; 81001; 81025; 85025; 99284; G0480; G6039; G0479

== ENCOUNTER 2018-11-26 14:40 | Emergency (ER) | payer OTHER ==
[~2018-11-26] VITALS: Ht 165.1 cm; Wt 68.0 kg
[2018-11-26 15:47] VITALS: BP 109/57
--- NOTE | 2018-11-26 16:15 | RAD ---
THREE VIEWS LEFT FINGER Clinical History: PT STATES SHE SHUT LT THUMB IN CAR DOOR 2 DAYS AGO. PAIN TO LT THUMB Technique: AP view of the hand, as well as lateral and AP collimated views of the thumb were obtained. Comparison: None. Findings: There is no acute fracture or dislocation. There is no radiopaque foreign body. The soft tissues are normal. Mineralization is normal. Joint spaces maintained. IMPRESSION: No acute fracture. Electronically signed by: Gerard Damon MD (11/26/2018 4:13 PM) [id number]
--- NOTE | 2018-11-26 16:33 | PHYS DOC ---
Past Medical History Past Medical History: Anxiety, Depression Additional Past Medical Histor: Suicidal attmpt with pills X2 Past Surgical History: No Surgical History Additional Past Surgical Histo: eye surgery as child,D&C,BREAST REDUCTION Alcohol Use: Rarely Drug Use: Marijuana Adult General Chief Complaint Chief Complaint: FINGER INJURY HPI HPI Patient is a 23 year old AA female who presents to the ER with complaints of left thumb pain after getting her thumb shut in a door 2 days ago. Currently her pain is an 8/10 on the pain scale, she has been taking 800 mg of ibuprofen at home with no relief of her pain. Review of Systems Review of Systems Constitutional: Denies fever or chills [] Musculoskeletal: reports left thumb pain Integument: Denies rash, reports blood trapped under left thumb fingernail Neurologic: Denies headache, focal weakness or sensory changes [] Allergies Allergies Allergies Coded Allergies Type Severity Reaction Last Updated Verified haloperidol Allergy Severe lock jaw 09/17/17 Yes fluoxetine Allergy Intermediate LOCKJAW 06/22/18 Yes Physical Exam Physical Exam Constitutional: Well developed, well nourished, no acute distress, non-toxic appearance. [] HENT: Normocephalic, atraumatic, bilateral external ears normal, nose normal. [] Eyes: conjunctiva normal, no discharge. [] Neck: Normal range of motion, no stridor. [] Lungs & Thorax: Respirations even and unlabored, no retractions, no respiratory distress Skin: Warm, dry, no erythema, no rash; subungual hematoma noted under left thumbnail. [] Extremities: L thumb TTP of distal end, no deformity, no cyanosis, ROM intact, Neurologic: Alert and oriented X 3, no focal deficits noted. [] Psychologic: Affect normal, judgement normal, mood normal. [] Current Patient Data Vital Signs Vital Signs Date Time Temp Pulse Resp B/P (MAP) Pulse Ox O2 Delivery O2 Flow Rate FiO2 11/26/18 15:47 98.2 63 16 109/57 (74) 100 Room Air 98.2 EKG EKG [] Radiology/Procedures Radiology/Procedures PROCEDURE: FINGER(S) LEFT THREE VIEWS LEFT FINGER Clinical History: PT STATES SHE SHUT LT THUMB IN CAR DOOR 2 DAYS AGO. PAIN TO LT THUMB Technique: AP view of the hand, as well as lateral and AP collimated views of the thumb were obtained. Comparison: None. Findings: There is no acute fracture or dislocation. There is no radiopaque foreign body. The soft tissues are normal. Mineralization is normal. Joint spaces maintained. IMPRESSION: No acute fracture. 1640 trephination of the left thumbnail using a Bovie was done. 2 small holes were burned into the nailbed, a moderate amount of dark red blood and pus mixture was drained from beneath the nail. Pt tolerated procedure well. [] Course & Med Decision Making Course & Med Decision Making Pertinent Labs and Imaging studies reviewed. (See chart for details) Dx: L thumb subungual hematoma Rx for keflex and naproxen. X-ray negative for any acute findings. Patient verbalized an understanding of home care, medications, follow-up, and return to ED instructions and was in agreement with the plan of care. [] Dragon Disclaimer Dragon Disclaimer This electronic medical record was generated, in whole or in part, using a voice recognition dictation system. Departure Departure Impression: Primary Impression: Subungual hematoma of left thumb Additional Impression: Crushing injury of left thumb, initial encounter Disposition: HOME, SELF-CARE Condition: STABLE Referrals: UNKNOWN PCP NAME (PCP) Patient Instructions: Crush Injury, Fingers or Toes, [id number], Subungual Hematoma, [id number] Additional Instructions: Fill prescription(s) and use as directed. Soak affected area in epsom salt soaks 3-4x/day and as needed for comfort. Follow up with your primary care doctor if symptoms persist, return to the ER if your symptoms worsen. Scripts Naproxen (NAPROXEN) 500 Mg Tablet.dr 1 TAB PO BID for 10 Days, #20 TAB 0 Refills Prov: HENOK KESSLER APRN 11/26/18 Cephalexin (CEPHALEXIN) 500 Mg Capsule 1 CAP PO TID for 7 Days, #21 CAP 0 Refills Prov: HENOK KESSLER APRN 11/26/18 Problem Qualifiers Primary Impression: Subungual hematoma of left thumb Encounter type: initial encounter Qualified Codes: S60.112A - Contusion of left thumb with damage to nail, initial encounter HENOK KESSLER APRN Nov 26, 2018 16:33
[2018-11-26] MEDS ORDERED: NAPR500T8 PO (16:48)
[2018-11-26] MEDS ORDERED: CEPH500C PO (16:48)
== END 2018-11-26 16:50 | disposition home or self-care (01) ==
LOC: ER 14:40
DX: S60.112A Contusion of left thumb with damage to nail, initial encounter (principal); Z88.8 Allergy status to other drugs, medicaments and biological substances; W23.0XXA Caught, crushed, jammed, or pinched between moving objects, initial encounter; Y93.89 Activity, other specified; Y92.89 Other specified places as the place of occurrence of the external cause; Y99.8 Other external cause status
CPT/HCPCS: 11740; 73140; 99283-25

== ENCOUNTER 2019-06-09 16:02 | Emergency (ER) | payer MEDICAID, OTHER ==
[~2019-06-09] VITALS: Ht 170.2 cm; Wt 64.4 kg
[~2019-06-09 16:02] MED LIST changes: +CEPH500C PO; +NAPR500T8 PO
[2019-06-09 16:20] VITALS: BP 109/55
--- NOTE | 2019-06-09 16:42 | PHYS DOC ---
Past Medical History Past Medical History: Anxiety, Depression Additional Past Medical Histor: Suicidal attmpt with pills X2 Past Surgical History: No Surgical History Additional Past Surgical Histo: eye surgery as child,D&C,BREAST REDUCTION Additional Information: 2/3 "smokes per day" Alcohol Use: Rarely Drug Use: Marijuana Adult General Chief Complaint Chief Complaint: PAIN ON URINATION HPI HPI Patient is a 24 year old female who presents with urinary frequency and burning with urination �7 days. Patient denies any back pain or abdominal pain. Patient has no pain at this time. Patient denies seeing any blood in her urine. Patient is 6 weeks . Review of Systems Review of Systems : dysuria or denies hematuria [] All other systems were reviewed and found to be within normal limits, except as documented in this note. Allergies Allergies Allergies Coded Allergies Type Severity Reaction Last Updated Verified haloperidol Allergy Severe lock jaw 09/17/17 Yes fluoxetine Allergy Intermediate LOCKJAW 06/22/18 Yes Physical Exam Physical Exam Constitutional: Well developed, well nourished, no acute distress, non-toxic appearance. [] Abdomen: Bowel sounds normal, soft, no tenderness, no masses, no pulsatile masses. [] Skin: Warm, dry, no erythema, no rash. [] Back: No tenderness, no CVA tenderness. Normal Physical Exam[] Current Patient Data Vital Signs Vital Signs Date Time Temp Pulse Resp B/P (MAP) Pulse Ox O2 Delivery O2 Flow Rate FiO2 06/09/19 16:20 98.5 75 22 109/55 (73) 99 Room Air 98.5 Lab Values Laboratory Tests Test 06/09/19 16:35 Urine Collection Type Unknown Urine Color Yellow Urine Clarity Cloudy Urine pH 7.0 Urine Specific Lockhart 1.025 Urine Protein Negative mg/dL (NEG-TRACE) Urine Glucose (UA) Negative mg/dL (NEG) Urine Ketones (Stick) Negative mg/dL (NEG) Urine Blood Negative (NEG) Urine Nitrite Negative (NEG) Urine Bilirubin Negative (NEG) Urine Urobilinogen Dipstick 1.0 mg/dL (0.2 mg/dL) Urine Leukocyte Esterase Small (NEG) Urine RBC Occ /HPF (0-2) Urine WBC 5-10 /HPF (0-4) Urine Squamous Epithelial Cells Many /LPF Urine Bacteria Many /HPF (0-FEW) Urine Mucus Mod /LPF EKG EKG [] Radiology/Procedures Radiology/Procedures [] Course & Med Decision Making Course & Med Decision Making Patient is a 24 year old female who presents with urinary frequency and burning with urination �7 days. Patient denies any back pain or abdominal pain. Patient has no pain at this time. Patient denies seeing any blood in her urine. Patient is 6 weeks . Alert and oriented. Speaks in full sentences. Skin is pink warm and dry. Ambulatory with steady gait. Abdomen is soft and nontender. Vital signs within normal limits. Afebrile. Patient denies any abnormal vaginal discharge are essentially she has been disease concerns. Dragon Disclaimer Dragon Disclaimer This electronic medical record was generated, in whole or in part, using a voice recognition dictation system. Departure Departure Impression: Primary Impression: UTI (urinary tract infection) Disposition: HOME, SELF-CARE Condition: STABLE Referrals: NO PCP (PCP) Patient Instructions: - Urinary Tract Infection Additional Instructions: Follow up with OB doctor. Take medication as prescribed. Scripts Cephalexin (KEFLEX) 500 Mg Capsule 1 CAP PO BID, #14 CAP Prov: ANNA ZARCO APRN 06/09/19 Problem Qualifiers Primary Impression: UTI (urinary tract infection) Urinary tract infection type: site unspecified Hematuria presence: without hematuria Qualified Codes: N39.0 - Urinary tract infection, site not specified ANNA ZARCO APRN Jun 09, 2019 16:42
[2019-06-09 16:48] LABS: BILIRUBIN,URINE NEGATIVE (NEG); CLARITY,URINE CLOUDY; COLOR,URINE YELLOW; NITRITE,URINE NEGATIVE (NEG); PROTEIN,URINE NEGATIVE (NEG-TRACE)
[2019-06-09 16:57] LABS: BACTERIA,URINE MANY /HPF (0-FEW); RBC,URINE OCC /HPF (0-2); SQUAMOUS EPITHELIAL CELL,UR MANY /LPF
[2019-06-09] MEDS ORDERED: CEPH-264 PO (17:01)
== END 2019-06-09 17:20 | disposition home or self-care (01) ==
LOC: ER 16:02
DX: O23.41 Unspecified infection of urinary tract in pregnancy, first trimester (principal); O99.331 Smoking (tobacco) complicating pregnancy, first trimester; Z88.8 Allergy status to other drugs, medicaments and biological substances; Z3A.01 Less than 8 weeks gestation of pregnancy
CPT/HCPCS: 81001; 87086; 99284

== ENCOUNTER 2019-09-18 16:52 | Observation (INO) | payer MEDICAID ==
[~2019-09-18 16:52] MED LIST changes: +CEPH-264 PO
[2019-09-18] MEDS ORDERED: IV RINGERS,LACTATED 1000ML 1,000 ML IV SCH (17:06)
[2019-09-18 17:29] LABS: BILIRUBIN,URINE NEGATIVE (NEG); CLARITY,URINE CLEAR; COLOR,URINE YELLOW; NITRITE,URINE NEGATIVE (NEG); PROTEIN,URINE NEGATIVE (NEG-TRACE)
[2019-09-18 17:38] LABS: BACTERIA,URINE MANY /HPF (0-FEW); RBC,URINE OCC /HPF (0-2); SQUAMOUS EPITHELIAL CELL,UR MOD /LPF
== END 2019-09-18 18:15 | disposition home or self-care (01) ==
LOC: 3 SO LND 16:52
PROVIDERS: ADMIT Obstetrics & Gynecology; ATTEND Obstetrics & Gynecology
DX: O34.62 Maternal care for abnormality of vagina, second trimester (principal); N89.8 Other specified noninflammatory disorders of vagina; Z3A.21 21 weeks gestation of pregnancy; Z79.899 Other long term (current) drug therapy
CPT/HCPCS: 81001; 87086; G0378; G0379

== ENCOUNTER → 2019-10-15 | Outpatient (CLI) | payer MEDICAID ==
--- NOTE | 2019-10-15 17:44 | RAD ---
Examination: PREG MORE THAN OR EQ TO 14 WKS History: Size and dates Comparison/Correlation: None Findings: OB ultrasound exam was performed. Single intrauterine gestation is present with average ultrasound age of 24 weeks 5 days corresponding to ultrasound EDC of 01/30/2020. This is 2 days less than expected by clinical age. Estimated weight is at the 40th percentile. Estimated weight is 723 g. heart rate is 149 bpm. Grade 1 placenta is at the posterior fundal location. Cephalic index is 79.5 Head Circumference to abdominal circumference ratio is 1.16 Femur length to biparietal diameter ratio 77.5 Femur length to head circumference ratio is 20.5 Femur length abdominal circumference ratio is 23.9. Biparietal diameter is 5.99 cm corresponding to 24 weeks 3 days Head circumference is 22.6 cm corresponding 24 weeks 4 days Abdominal circumference is 19.45 cm corresponding to 24 weeks 1 day Femur length is 4.64 cm corresponding to 25 weeks 3 days anatomy identified include: Three-vessel cord insertion, fluid in the urinary bladder, stomach, bilateral kidneys, spine, brain. motion and cardiac motion identified. Maternal cervical length of 4.4 cm present. Impression: Single living intrauterine gestation of 24 weeks 5 days by average ultrasound age. This approximates age by last menstrual period. Electronically signed by: Mario Laws MD (10/15/2019 5:41 PM) [id number]
== END | disposition home or self-care (01) ==
LOC: US 13:29
PROVIDERS: ATTEND Obstetrics & Gynecology
DX: O26.842 Uterine size-date discrepancy, second trimester (principal); Z3A.24 24 weeks gestation of pregnancy
CPT/HCPCS: 76805

== ENCOUNTER 2019-10-26 14:08 | Emergency (ER) | payer MEDICAID ==
[~2019-10-26] VITALS: Ht 165.1 cm; Wt 78.0 kg
[2019-10-26 14:20] VITALS: BP 115/61
--- NOTE | 2019-10-26 18:16 | PHYS DOC ---
Past Medical History Past Medical History: Anxiety, Depression Additional Past Medical Histor: Suicidal attmpt with pills X2 Past Surgical History: No Surgical History Additional Past Surgical Histo: eye surgery as child,D&C,BREAST REDUCTION Smoking Status: Current Some Day Smoker Alcohol Use: Rarely Drug Use: Marijuana Adult General Chief Complaint Chief Complaint: SEXUALLY TRANSMITTED DISEASE HPI HPI Patient is a 24 year old female present in with a lesion on her left vulva. She says there is an itchy area there is kind of bumpy when she tries to urinate gets in the way she is 26 weeks there is no symptoms at all no abdominal pain no vaginal discharge denies just dysuria except for that. The skin Hurts a little bit when she tries to move it out of the way. She is worried about an std Review of Systems Review of Systems C Allergies Allergies Allergies Coded Allergies Type Severity Reaction Last Updated Verified haloperidol Allergy Severe lock jaw 09/17/17 Yes fluoxetine Allergy Intermediate LOCKJAW 06/22/18 Yes Physical Exam Physical Exam Constitutional: Well developed, well nourished, no acute distress, non-toxic appearance. [] HENT: Normocephalic, atraumatic, bilateral external ears normal, oropharynx moist, no oral exudates, nose normal. [] Eyes: PERRLA, EOMI, conjunctiva normal, no discharge. [] Abdomen: Bowel sounds normal, soft, no tenderness, no masses, no pulsatile masses. [] gravid gu: there is small lesion left vulva some excoriated tissue mild fullness ther but no induration or erythema no fluctuance Extremities: No tenderness, no cyanosis, no clubbing, ROM intact, no edema. [] Neurologic: Alert and oriented X 3, normal motor function, normal sensory function, no focal deficits noted. [] Psychologic: Affect normal, judgement normal, mood normal. [] Current Patient Data Vital Signs Vital Signs Date Time Temp Pulse Resp B/P (MAP) Pulse Ox O2 Delivery O2 Flow Rate FiO2 10/26/19 14:20 98.7 96 16 115/61 (79) 96 Room Air 98.7 EKG EKG [] Radiology/Procedures Radiology/Procedures [] Course & Med Decision Making Course & Med Decision Making Pertinent Labs and Imaging studies reviewed. (See chart for details) []24-year-old female presenting with a lesion on her left although she is 26 weeks differential to me would be a Bartholin's cyst I don't think it's infected versus less likely a herpetic lesion there is some excoriation there. i thuink we should do gc/chlam ur pcr and viral culture and asked her to follow up with primary beauty director next week for re-eval Rajinder Disclaimer Rajinder Disclaimer This electronic medical record was generated, in whole or in part, using a voice recognition dictation system. Departure Departure Impression: Primary Impression: Rash Disposition: 01 HOME, SELF-CARE Condition: STABLE Patient Instructions: Bartholin's Cyst and Abscess-Brief Additional Instructions: YOU MAY HAVE A SMALL CYST ON YOUR LEFT VAGINA. WE ALS HAVE SENT STD TESTING PLEASE FOLLOW UP WITH YOUR SENIOR LINUX ENGINEER NEXT WEEK FOR A REHCECK AND TO FOLLOW UP ON THE CULTURES. RETURN SOONER FOR ENLARGEMENT FEVER OR ANY OTHER CONCERNS. GM SPENCER MD Oct 26, 2019 18:16
== END 2019-10-26 15:30 | disposition home or self-care (01) ==
LOC: ER 14:08
DX: O26.892 Other specified pregnancy related conditions, second trimester (principal); N90.89 Other specified noninflammatory disorders of vulva and perineum; L29.2 Pruritus vulvae; F41.9 Anxiety disorder, unspecified; F32.9 Major depressive disorder, single episode, unspecified; F12.90 Cannabis use, unspecified, uncomplicated; F17.200 Nicotine dependence, unspecified, uncomplicated; Z98.890 Other specified postprocedural states; Z88.8 Allergy status to other drugs, medicaments and biological substances; Z3A.26 26 weeks gestation of pregnancy
CPT/HCPCS: 87491; 87529; 87591; 99283

== ENCOUNTER → 2019-10-29 | Outpatient (CLI) | payer MEDICAID ==
[2019-10-26 14:20] VITALS: BP 115/61
== END | disposition home or self-care (01) ==
LOC: LAB 11:16
PROVIDERS: ATTEND Obstetrics & Gynecology
DX: O09.92 Supervision of high risk pregnancy, unspecified, second trimester (principal); Z3A.26 26 weeks gestation of pregnancy
CPT/HCPCS: 36415; 86592; 87529

== ENCOUNTER → 2019-11-27 | Outpatient (CLI) | payer MEDICAID ==
[~2019-11-27] MED LIST changes: +FOLI20CA PO; +PNV1TABL78 PO; +cefTRIAXone IM 250 MG VIAL IM ONE
[2019-11-27 15:24] VITALS: BP 105/58
== END | disposition home or self-care (01) ==
LOC: OPS 15:02
PROVIDERS: ATTEND Obstetrics & Gynecology
DX: O98.213 Gonorrhea complicating pregnancy, third trimester (principal); O09.893 Supervision of other high risk pregnancies, third trimester; F41.9 Anxiety disorder, unspecified; F32.9 Major depressive disorder, single episode, unspecified; Z87.891 Personal history of nicotine dependence; Z3A.31 31 weeks gestation of pregnancy
CPT/HCPCS: 96372; J0696

== ENCOUNTER 2020-10-14 09:23 | Emergency (ER) | payer BC, MEDICAID ==
[~2020-10-14] VITALS: Ht 162.6 cm; Wt 69.5 kg
[~2020-10-14 09:23] MED LIST changes: -ESCI10TA2 PO; +ESCI10TA90 PO; -FOLI20CA PO; +FOLIC ACID20 MG PO; -cefTRIAXone IM 250 MG VIAL IM ONE
[2020-10-14 09:39] VITALS: BP 109/67
--- NOTE | 2020-10-14 10:18 | PHYS DOC ---
Past Medical History Past Medical History: Anxiety, Depression Additional Past Medical Histor: Suicidal attmpt with pills X2 Past Surgical History: No Surgical History Additional Past Surgical Histo: eye surgery as child,D&C,BREAST REDUCTION Smoking Status: Former Smoker Alcohol Use: None Drug Use: Marijuana General Adult EDM: Chief Complaint: PSYCH EVALUATION HPI: HPI: Patient is a 25 year old female with history of anxiety, depression, psychosis, who presents to the ED today complaining of manic episodes that began 10 months ago after giving . Patient states she used to be on several psychosis medicines but was taken off because she had locked jaw. Denies any thoughts of harming herself or other people. She states the episodes have increased and she would like to be back on some medicine. Review of Systems: Review of Systems: Constitutional: Denies fever or chills. [] Eyes: Denies change in visual acuity. [] HENT: Denies nasal congestion or sore throat. [] Respiratory: Denies cough or shortness of breath. [] Cardiovascular: Denies chest pain or edema. [] GI: Denies abdominal pain, nausea, vomiting, bloody stools or diarrhea. [] : Denies dysuria. [] Musculoskeletal: Denies back pain or joint pain. [] Integument: Denies rash. [] Neurologic: Denies headache, focal weakness or sensory changes. [] Endocrine: Denies polyuria or polydipsia. [] Lymphatic: Denies swollen glands. [] Psychiatric: Reports psychosis and manic behavior Heart Score: Risk Factors: Risk Factors: DM, Current or recent (<one month) smoker, HTN, HLP, family histo ry of CAD, obesity. Risk Scores: Score 0 - 3: 2.5% MACE over next 6 weeks - Discharge Home Score 4 - 6: 20.3% MACE over next 6 weeks - Admit for Clinical Observation Score 7 - 10: 72.7% MACE over next 6 weeks - Early Invasive Strategies Allergies: Allergies: Allergies Coded Allergies Type Severity Reaction Last Updated Verified haloperidol Allergy Severe lock jaw 11/27/19 Yes fluoxetine Allergy Intermediate LOCKJAW 11/27/19 Yes Physical Exam: PE: Constitutional: Well developed, well nourished, no acute distress, non-toxic appearance. [] HENT: Normocephalic, atraumatic, bilateral external ears normal, oropharynx moist, no oral exudates, nose normal. [] Eyes: PERRLA, EOMI, conjunctiva normal, no discharge. [] Neck: Normal range of motion, no tenderness, supple, no stridor. [] Cardiovascular:Heart rate regular rhythm, no murmur [] Lungs & Thorax: Bilateral breath sounds clear to auscultation [] Abdomen: Bowel sounds normal, soft, no tenderness, no masses, no pulsatile masses. [] Skin: Warm, dry, no erythema, no rash. [] Back: No tenderness, no CVA tenderness. [] Extremities: No tenderness, no cyanosis, no clubbing, ROM intact, no edema. [] Neurologic: Alert and oriented X 3, normal motor function, normal sensory function, no focal deficits noted. [] Psychologic: Flat affect, appears withdrawn Current Patient Data: Vital Signs: Vital Signs Date Time Temp Pulse Resp B/P (MAP) Pulse Ox O2 Delivery O2 Flow Rate FiO2 10/14/20 09:39 97.9 77 16 109/67 (81) 98 Room Air 97.9 EKG: EKG: [] Radiology/Procedures: Radiology/Procedures: [] Course & Med Decision Making: Course & Med Decision Making Pertinent Labs and Imaging studies reviewed. (See chart for details) This is a 25-year-old female patient presenting to the ED today complaining of manic behavior and psychosis for the last 10 months. She delivered a baby 10 months ago. She has a history of depression anxiety and psychosis. She reports being on medicine but was taken off the medication a while back because of locked jaw. Negative urine hCG, UA is negative. UDS is negative 1017 spoke with Howie who will come and assess patient Gogo from the PAT team in the ED, she accessed patient. They agreed with patient she is going to [facility] today. Patient requested to go home and make sure somebody can take care of her son then head to [facility]. Patient was discharged in stable condition. Rajinder Disclaimer: Rajinder Disclaimer: This electronic medical record was generated, in whole or in part, using a voice recognition dictation system. Departure Departure Impression: Primary Impression: Psychiatric problem Disposition: 01 DC HOME SELF CARE/HOMELESS Condition: STABLE Referrals: NO PCP (PCP) Go to [facility] today Patient Instructions: Psychosis Additional Instructions: You were evaluated in the emergency room. Please go home as soon as you can find somebody to take care of your son and head to ANISA BRAGG APRN Oct 14, 2020 10:17
[2020-10-14 10:38] LABS: BARBITURATES NEG (NEG); BENZODIAZEPINES NEG (NEG); CANNABINOIDS NEG (NEG); COCAINE NEG (NEG); METHADONE NEG (NEG); OPIATES NEG (NEG); PHENCYCLIDINE NEG (NEG)
[2020-10-14 10:39] LABS: AMPHETAMINE/METHAMPHETAMINE NEG (NEG)
[2020-10-14 10:45] LABS: BILIRUBIN,URINE NEGATIVE (NEG); CLARITY,URINE CLEAR; COLOR,URINE YELLOW; NITRITE,URINE NEGATIVE (NEG); PH,URINE 5.5 (<5.0-8.0); PROTEIN,URINE NEGATIVE (NEG-TRACE)
[2020-10-14 10:50] LABS: U PREG PATIENT NEGATIVE (NEG)
[2020-10-14 11:10] LABS: BACTERIA,URINE FEW /HPF (0-FEW); RBC,URINE 0 /HPF (0-2)
== END 2020-10-14 11:47 | disposition home or self-care (01) ==
LOC: ER 09:23
DX: F99 Mental disorder, not otherwise specified (principal); F41.9 Anxiety disorder, unspecified; F32.9 Major depressive disorder, single episode, unspecified; F12.90 Cannabis use, unspecified, uncomplicated; Z87.891 Personal history of nicotine dependence; Z98.890 Other specified postprocedural states; Z88.8 Allergy status to other drugs, medicaments and biological substances
CPT/HCPCS: 80307; 81001; 81025; 99284

== ENCOUNTER 2020-12-25 16:26 | Emergency (ER) | payer BC, MEDICAID ==
[~2020-12-25] VITALS: Ht 165.1 cm; Wt 60.9 kg
[2020-12-25] MEDS ORDERED: LIDO:MAALOX 1:1 20 ML SINGLE DOSE. SWSW ONE (18:15)
[2020-12-25 19:00] VITALS: BP 104/68
--- NOTE | 2020-12-25 19:49 | ED.ADGEN ---
Past Medical History Past Medical History: Anxiety, Depression Additional Past Medical Histor: Suicidal attmpt with pills X2 Past Surgical History: No Surgical History Additional Past Surgical Histo: eye surgery as child,D&C,BREAST REDUCTION Smoking Status: Current Every Day Smoker Additional Information: 1 PPD Alcohol Use: None Drug Use: Marijuana General Adult EDM: Chief Complaint: ACCIDENTAL INGESTION HPI: HPI: Patient is a 25 year old AA female who presents emergency department with complaints of severe upper abdominal pain after accidentally drinking a mouthful of bleach water. Patient states that she keeps a water bottle that contains water and bleach and ended her sink to use for cleaning. While she was cleaning this evening she became thirsty and she accidentally took a drink out of this water bottle. She denies any vomiting, shortness of breath, chest pain, palpitations, lower abdominal pain, or difficulty swallowing. Patient states that she feels nauseated and has not been able to drink water after drinking the bleach for fear of her abdomen hurting worse. She currently rates the pain a 10 out of 10 on the pain scale describes it as a burning sensation. Review of Systems: Review of Systems: Complete ROS is negative unless otherwise noted in HPI. Current Medications: Current Medications Medications (Trade) Dose Ordered Sig/Ida Start Time Stop Time Status Last Admin Dose Admin Multi-Ingredient Mouthwash/Gargle (Gi Cocktail) 20 ml 1X ONCE 12/25/20 18:15 12/25/20 18:16 DC 12/25/20 19:19 20 ML Allergies: Allergies: Allergies Coded Allergies Type Severity Reaction Last Updated Verified haloperidol Allergy Severe lock jaw 11/27/19 Yes fluoxetine Allergy Intermediate LOCKJAW 11/27/19 Yes Physical Exam: PE: See Above Constitutional: Well developed, well nourished, no acute distress, non-toxic appearance. [] HENT: Normocephalic, atraumatic, bilateral external ears normal, nose normal. [] Eyes: PERRLA, EOMI, conjunctiva normal, no discharge. [] Neck: Normal range of motion, no stridor. [] Cardiovascular:Heart rate regular rhythm Lungs & Thorax: Respirations even and unlabored, no retractions, no respiratory distress Abdomen: soft, epigastric tenderness otherwise nontender, no palpable mass Skin: Warm, dry, no erythema, no rash. [] Extremities: No cyanosis, ROM intact, no edema. [] Neurologic: Alert and oriented X 3, normal motor, normal sensory, no focal deficits noted. [] Psychologic: Affect normal, judgement normal, mood normal. [] Current Patient Data: Vital Signs: Vital Signs Date Time Temp Pulse Resp B/P (MAP) Pulse Ox O2 Delivery O2 Flow Rate FiO2 12/25/20 19:00 98.1 121 16 104/68 (80) 99 Room Air 98.1 EKG: EKG: [] Heart Score: C/O Chest Pain: No Risk Scores: Score 0 - 3: 2.5% MACE over next 6 weeks - Discharge Home Score 4 - 6: 20.3% MACE over next 6 weeks - Admit for Clinical Observation Score 7 - 10: 72.7% MACE over next 6 weeks - Early Invasive Strategies Radiology/Procedures: Radiology/Procedures: [] Course & Med Decision Making: Course & Med Decision Making Pertinent Labs and Imaging studies reviewed. (See chart for details) 25-year-old female presents emergency department complaints of epigastric pain and burning after accidentally drinking some bleach water. Patient was given a GI cocktail in the emergency department. She reported relief of her abdominal discomfort after taking GI cocktail. Patient then was able to drink a few glasses of water without vomiting. I encouraged patient to continue drinking fluids as dilution is a solution to the problem. I encouraged her to follow-up with her primary care doctor next week, return to the ER symptoms worsen or fever develop. Patient verbalized an understanding of home care, medications, follow-up, and return to ED instructions and was in agreement with the plan of care. [] Dragon Disclaimer: Dragon Disclaimer: This electronic medical record was generated, in whole or in part, using a voice recognition dictation system. Departure Departure Impression: Primary Impression: Accidental exposure to bleach Disposition: HOME / SELF CARE / HOMELESS Condition: STABLE Referrals: NO PCP (PCP) Patient Instructions: Nontoxic Ingestion Additional Instructions: Continue to drink lots of water or fluids. Dilution is the solution. Follow up with your primary care doctor next week, return to the ER if your symptoms worsen or fever develops. [facility] [address] [place] [address] [facility] [address] [place], [place] [id number] [address] [place] [address] [facility] [address] [place] [address] [facility] [address] [place] [address] [address] [place] [address] [address] [place] [address] [facility] [address] [place] [address] [facility] [address] [place] [address] [facility] [address] [place] [address] Attending Signature Attending Signature I have participated in the care of this patient and I have reviewed and agree with all pertinent clinical information above including history, exam, and recommendations. 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
== END 2020-12-25 19:53 | disposition home or self-care (01) ==
LOC: ER 16:26
DX: R10.13 Epigastric pain (principal); F41.9 Anxiety disorder, unspecified; F32.9 Major depressive disorder, single episode, unspecified; F17.200 Nicotine dependence, unspecified, uncomplicated; F12.90 Cannabis use, unspecified, uncomplicated; Z98.890 Other specified postprocedural states
CPT/HCPCS: 99282

== ENCOUNTER 2021-07-27 23:43 | Emergency (ER) | payer BC, MEDICAID ==
[~2021-07-27] VITALS: Ht 165.1 cm; Wt 55.0 kg
[2021-07-28 01:30] VITALS: BP 128/86
[2021-07-28] MEDS ORDERED: HYDR-2759 PO (02:51)
[2021-07-28] MEDS ORDERED: AMOX500C PO (02:51)
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
== END 2021-07-28 03:09 | disposition home or self-care (01) ==
LOC: ER 23:43
DX: K08.89 Other specified disorders of teeth and supporting structures (principal); F17.200 Nicotine dependence, unspecified, uncomplicated; Z88.8 Allergy status to other drugs, medicaments and biological substances
CPT/HCPCS: 99283

== ENCOUNTER 2021-09-13 00:51 | Emergency (ER) | payer BC, MEDICAID ==
[~2021-09-13] VITALS: Ht 162.6 cm; Wt 59.1 kg
[~2021-09-13 00:51] MED LIST changes: +AMOX500C PO; +HYDR-2759 PO
[2021-09-13 02:00] VITALS: BP 129/85
[2021-09-13] MEDS ORDERED: ORPH100T PO (02:23)
--- NOTE | 2021-09-13 02:23 | PHYS DOC ---
Past Medical History Past Medical History: Anxiety, Depression Additional Past Medical Histor: Suicidal attmpt with pills X2 Additional Past Surgical Histo: eye surgery as child,D&C,BREAST REDUCTION Smoking Status: Never Smoker Alcohol Use: None Drug Use: Marijuana General Adult EDM: Chief Complaint: MUSCLE SPASM/CRAMP HPI: HPI: Patient is a 26-year-old female presenting to the ED with muscle spasms in right posterior shoulder. Patient states that she was at work at [employer], when at around 9 or 10 she noticed she had a sharp pain on her right back shoulder blade that started to shoot up towards her neck and around towards the front of her chest. Patient states that any movement has made it worse, and nothing has really made it better. She has never experienced something like this before. She has rated it a 8 out of 10. Patient takes no other medications except for an oral contraceptive pill, patient knows she is not . Patient denies any falls, trauma, other inciting factors. Review of Systems: Review of Systems: Constitutional: Denies fever or chills Eyes: Denies redness or eye pain HENT: Denies nasal congestion or sore throat Respiratory: Denies cough or shortness of breath Cardiovascular: Denies chest pain or palpitations GI: Denies abdominal pain, nausea, or vomiting : Denies dysuria or hematuria Musculoskeletal: Denies back pain; reports right shoulder pain/muscle spasms Integument: Denies rash or skin lesions Neurologic: Denies headache, focal weakness or sensory changes Complete systems were reviewed and found to be within normal limits, except as documented in this note. Heart Score: C/O Chest Pain: N/A Allergies: Allergies: Allergies Coded Allergies Type Severity Reaction Last Updated Verified haloperidol Allergy Severe lock jaw 11/27/19 Yes fluoxetine Allergy Intermediate LOCKJAW 11/27/19 Yes Physical Exam: PE: Constitutional: Well developed, well nourished, no acute distress, non-toxic appearance HENT: Normocephalic, atraumatic Eyes: PERRL, EOMI, conjunctiva normal, no discharge Neck: Normal range of motion, no tenderness, supple Lungs & Thorax: No respiratory distress, equal chest rise and fall Abdomen: Soft, no tenderness Skin: Warm, dry, no erythema, no rash Back: Moderate tenderness to right midline scapular border, no bony tenderness, range of motion slightly diminished to Right arm extension and ABduction. Extremities: No tenderness, ROM intact, no edema Neurologic: Alert and oriented X 3, normal motor function, normal sensory function, no focal deficits noted Psychologic: Affect normal, judgment normal Current Patient Data: Vital Signs: Vital Signs Date Time Temp Pulse Resp B/P (MAP) Pulse Ox O2 Delivery O2 Flow Rate FiO2 09/13/21 02:00 97.8 69 14 129/85 (100) 99 Room Air 97.8 EKG: EKG: [] Radiology/Procedures: Radiology/Procedures: [] Course & Med Decision Making: Course & Med Decision Making Patient is a 26-year-old female presenting to the ED with muscle spasm. Due to the history and physical exam of this patient it is believed this is a overuse muscle spasm. Because of this no imaging is necessary as there is no bony tenderness. Labs are not warranted at this time, the patient is on oral contraceptive pill and denies any possibility of being so no test is needed. We have given 1 dose of Toradol before discharge and are prescribing a muscle relaxer. We have instructed the patient to RICE protocol, and given a work note for this evening. Patient stable for discharge with outpatient follow-up with PCP. Discussed findings and plan with patient, who acknowledges understanding and agreement. Rajinder Disclaimer: Rajinder Disclaimer: This electronic medical record was generated, in whole or in part, using a voice recognition dictation system. Departure Departure Impression: Primary Impression: Muscle strain, shoulder region Qualified Codes: S46.911A - Strain of unspecified muscle, fascia and tendon at shoulder and upper arm level, right arm, initial encounter Disposition: HOME / SELF CARE / HOMELESS Condition: STABLE Referrals: NO PCP (PCP) Patient Instructions: Muscle Strain, [id number] Additional Instructions: Ice area of discomfort 20 minutes on then leave off next 20 minutes. Repeat several times daily for the next few days. After 72 hours may also introduce heat. Use [id number] ibuprofen and or Tylenol for pain or discomfort. Scripts Orphenadrine Citrate (ORPHENADRINE CITRATE) 100 Mg Tablet.er 100 MG PO BID PRN for MUSCLE SPASMS, #14 TAB Prov: KARIN ARORA DO 09/13/21 KARIN ARORA DO Sep 13, 2021 02:23
[2021-09-13] MEDS ORDERED: IBUPROFEN 200 MG TABLET. PO ONE (03:00)
== END 2021-09-13 02:54 | disposition home or self-care (01) ==
LOC: ER 00:51
DX: S46.911A Strain of unspecified muscle, fascia and tendon at shoulder and upper arm level, right arm, initial encounter (principal); Z88.8 Allergy status to other drugs, medicaments and biological substances; X58.XXXA Exposure to other specified factors, initial encounter; Y93.89 Activity, other specified; Y92.89 Other specified places as the place of occurrence of the external cause; Y99.8 Other external cause status
CPT/HCPCS: 99283

== ENCOUNTER 2021-11-07 21:16 | Observation (INO) | payer MEDICAID ==
[~2021-11-07] VITALS: Ht 162.6 cm; Wt 60.0 kg
[~2021-11-07 21:16] MED LIST changes: +ORPH100T PO
[2021-11-07 21:40] LABS: U PREG PATIENT NEGATIVE (NEG)
[2021-11-07 21:42] LABS: BILIRUBIN,URINE NEGATIVE (NEG); CLARITY,URINE CLEAR; COLOR,URINE YELLOW; NITRITE,URINE NEGATIVE (NEG); PROTEIN,URINE TRACE mg/dL (NEG-TRACE); UROBILINOGEN,URINE 0.2 mg/dL (0.2 mg/dL)
[2021-11-07 21:47] LABS: BACTERIA,URINE MODERATE /HPF (0-FEW); RBC,URINE OCC /HPF (0-2)
--- NOTE | 2021-11-07 21:48 | PHYS DOC ---
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 She denies urinary symptoms, vaginal discharge, concern for STD, dizziness, headache, fever, blood in her urine, blood in her vomit or stool, chest pain, shortness of breath, cough. She has a history of suicide attempt with overdose x2, depression, anxiety, breast reduction, D&C. 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 [] Eyes: Denies change in visual acuity. [] HENT: Denies nasal congestion or sore throat. [] Respiratory: Denies cough or shortness of breath. [] Cardiovascular: Denies chest pain or edema. [] GI: + abdominal pain, +nausea, +vomiting, denies bloody stools or +diarrhea. [] : Denies dysuria. [] Musculoskeletal: +Right back pain or denies joint pain. [] Integument: Denies rash. [] Neurologic: Denies headache, focal weakness or sensory changes. [] Endocrine: Denies polyuria or polydipsia. [] Lymphatic: Denies swollen glands. [] Psychiatric: Denies depression or anxiety. 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) Current Medications: Current Medications Medications (Trade) Dose Ordered Sig/Ida Start Time Stop Time Status Last Admin Dose Admin Famotidine (Pepcid Vial) 20 mg 1X ONCE 11/07/21 21:45 11/07/21 21:46 UNV Ketorolac Tromethamine (Toradol 30mg Vial) 30 mg 1X ONCE 11/07/21 21:45 11/07/21 21:46 UNV Ondansetron HCl (Zofran) 4 mg 1X ONCE 11/07/21 21:45 11/07/21 21:46 UNV Sodium Chloride 1,000 ml @ 1,000 mls/hr Q1H 11/07/21 22:00 11/07/21 22:59 (ANNA ZARCO APRN) Allergies: Allergies: Allergies Coded Allergies Type Severity Reaction Last Updated Verified haloperidol Allergy Severe lock jaw 11/27/19 Yes fluoxetine Allergy Intermediate LOCKJAW 11/27/19 Yes (ANNA ZARCO APRN) Physical Exam: PE: Constitutional: Well developed, well nourished, no acute distress, non-toxic appearance. [] HENT: Normocephalic, atraumatic, bilateral external ears normal, oropharynx mo ist, no oral exudates, nose normal. [] Eyes: PERRLA, EOMI, conjunctiva normal, no discharge. [] Neck: Normal range of motion, no tenderness, supple, no stridor. [] Cardiovascular:Heart rate regular rhythm, no murmur [] Lungs & Thorax: Bilateral breath sounds clear to auscultation [] Abdomen: Bowel sounds normal, soft, mid tenderness, no masses, no pulsatile masses. [] Skin: Warm, dry, no erythema, no rash. [] Back: No tenderness, Right CVA tenderness. [] Extremities: No tenderness, no cyanosis, no clubbing, ROM intact, no edema. [] Neurologic: Alert and oriented X 3, normal motor function, normal sensory function, no focal deficits noted. [] Psychologic: Affect normal, judgement normal, mood normal. [] (ANNA ZARCO APRN) Current Patient Data: Labs: Laboratory Tests Test 11/07/21 21:16 11/07/21 21:38 Urine Test Negative (NEG) POC Urine HCG, Qualitative Hcg negative (Negative) Vital Signs: Vital Signs Date Time Temp Pulse Resp B/P (MAP) Pulse Ox O2 Delivery O2 Flow Rate FiO2 11/07/21 21:26 98.7 97 16 128/80 (96) 99 Room Air 98.7 (ANNA ZARCO APRN) EKG: EKG: [] (ANNA ZARCO APRN) Radiology/Procedures: Radiology/Procedures: [] Impression: [facility] [address] [place], [place] [id number] IMAGING REPORT Signed PATIENT: KARIE MORANCOUNT: [id number] : 1995 LOCATION: ER AGE: 26 SEX: F EXAM STATUS: REG ER ORD. PHYSICIAN: ANNA ZARCO APRN REASON: ABD PAIN, VOMITING, DIARRHEA, FLANK PAIN, OMNI 300 75 ML IV PROCEDURE: CT ABD PELV W/ IV CONTRST ONLY Exam: CT of abdomen and pelvis with contrast INDICATION: Abdominal pain, vomiting, diarrhea, flank pain TECHNIQUE: Sequential axial images through the abdomen and pelvis obtained following the administration of 75 mL of Omni 300 IV contrast. Sagittal and coronal reformatted images were reconstructed from the axial data and reviewed. Exposure: One or more of the following in the visualized dose reduction techniques were utilized for this examination: 1. Automated exposure control 2. Adjustment of the MA and/or KV according to patient size 3. Use of iterative of reconstructive technique Comparisons: None FINDINGS: Heart size is normal. No pericardial. Visualized lung bases are clear. No pleural effusion. Liver, spleen, pancreas, gallbladder and adrenals are unremarkable. No perinephric inflammation or hydronephrosis. No renal or ureteral calculi are identified. Bladder is decompressed not well evaluated. Uterus is not enlarged. Small amount of free fluid in the pelvis. There is mucosal thickening and hyperenhancement involving the small bowel loops in the pelvis. Mesenteric stranding is also seen in the pelvis. Remainder large and small bowel are unremarkable. Appendix is normal. No free intra-abdominal air or fluid. No obstruction. Abdominal aorta has a normal course and caliber. Abdominal vasculature is patent. No enlarged intra-abdominal lymph nodes are identified. Irregularity at the right sacroiliac joint. No suspicious osseous lesions or acute fractures. IMPRESSION: 1. Inflammatory changes in the pelvis with small amount of free fluid and mucosal hyperenhancement small bowel loops in the pelvis. Findings could relate to underlying pelvic inflammatory disease. Correlate with physical exam/symptomatology. 2. Irregularity at the right sacroiliac joint representing unilateral sacroiliitis. Recommend MRI of the pelvis to exclude infection. Electronically signed by: Rosie Brown MD (11/07/2021 10:23 PM) [facility] DICTATED and SIGNED BY: ROSIE BROWN MD DATE: 11/07/[id number] 0 (ANNA ZARCO APRN) Radiology/Procedures: IMAGING REPORT Signed PATIENT: KARIE MORAN DACCOUNT: [id number] : 1995 LOCATION: ER AGE: 26 SEX: F EXAM STATUS: REG ER ORD. PHYSICIAN: ANNA ZARCO APRN REASON: abnormal CT, PID, pain PROCEDURE: PELVIS COMPLETE EXAM: ULTRASOUND PELVIS INDICATION: Abnormal CT. PAD, pain COMPARISON: CT abdomen pelvis 11/07/2021 TECHNIQUE: Transvaginal sonography was performed. FINDINGS: The uterus measures 7.7 x 5.4 x 3.6 cm. The endometrium measures 5.3 mm. There is no focal myometrial abnormality. There are prominent parametrial vessels, nonspecific. The right ovary measures 2.9 x 1.9 x 1.7 cm. The left ovary measures 2.4 x 1.8 x 1.7 cm. Normal blood flow seen in both ovaries. There is trace free fluid in the pelvis, nonspecific. No fluid collection. IMPRESSION: Unremarkable pelvic ultrasound. No acute abnormality. Electronically signed by: Linda Shankar MD (11/07/2021 11:58 PM) [facility] DICTATED and SIGNED BY: LINDA SHANKAR MD DATE: 11/07/21 [id number] 0 (COLE CAMARENA DO) Course & Med Decision Making: Course & Med Decision Making Pertinent Labs and Imaging studies reviewed. (See chart for details) See HPI. Alert and oriented x4. Ambulatory steady gait. Speaks in full clear sentences. Skin pink warm and dry. Abdomen is soft and tender to mid abdomen. Afebrile. Right lower back tenderness with palpation. Cervical motion tenderness present. 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 See CT scan for abnormalities. I have ordered Pelvic US. I sent her urine off for chlamydia and Gonorrhea. I have ordered azithromycin 1 g PO, Rocephin 1 g IV, doxycycline 100mg IV. 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 I agree with her pl an of care. The findings on CT are concerning for possible right-sided sacroiliitis. Clinically findings of PID are noted. She is given antibiotics to treat PID. The patient is resting comfortably. She reports some continued pain and nausea, so I ordered a dose of IV Zofran and IV fentanyl. I have discussed my recommendation for hospitalization. She is comfortable with this plan. She is accepted for admission by Dr. Saucedo. (COLE CAMARENA DO) Dragon Disclaimer: Dragon Disclaimer: This electronic medical record was generated, in whole or in part, using a voice recognition dictation system. (ANNA ZARCO APRN) Departure Departure Impression: Primary Impression: PID (acute pelvic inflammatory disease) Additional Impression: Sacroiliitis Disposition: ADMITTED INPATIENT Admitting Physician: MIKEL (Dr. Saucedo) (COLE CAMARENA DO) Condition: STABLE Referrals: NO PCP (PCP) Scripts Doxycycline Hyclate (DOXYCYCLINE HYCLATE) 100 Mg Capsule 1 CAP PO BID for ., #14 CAP Prov: CASTLE,NIAL K III DO 11/08/21 Oxycodone HCl/Acetaminophen (Percocet 5-325 mg Tablet) 1 Each Tablet 1 TAB PO PRN BID PRN for . MDD 2 Tablet(s) for 5 Days, #10 TAB 0 Refills Prov: CASTLE,NIAL K III DO 11/08/21 ANNA ZARCO APRN Nov 07, 2021 21:48 COLE CAMARENA DO Nov 08, 2021 00:17
[2021-11-07 21:55] LABS: BARBITURATES NEG (NEG); BENZODIAZEPINES NEG (NEG); CANNABINOIDS POS (NEG); COCAINE NEG (NEG); METHADONE NEG (NEG); OPIATES NEG (NEG); PHENCYCLIDINE NEG (NEG)
[2021-11-07 21:58] LABS: AMPHETAMINE/METHAMPHETAMINE NEG (NEG)
[2021-11-07 21:58] LABS: BASO % 0 % (0-3); EOS % 0 % (0-3); HEMATOCRIT 37.6 % (36.0-47.0); HEMOGLOBIN 12.2 g/dL (12.0-15.5); LYMPH # 0.9 x10^3/uL (1.0-4.8); LYMPH % 24 % (24-48); MEAN CORPUSCULAR HEMOGLOBIN 29 pg (25-35); MEAN CORPUSCULAR HGB CONC 33 g/dL (31-37); MEAN CORPUSCULAR VOLUME 90 fL (79-100); MONO # 0.3 x10^3/uL (0.0-1.1); MONO % 7 % (0-9); NEUT # 2.7 x10^3/uL (1.8-7.7); NEUT % 68 % (31-73); PLATELET COUNT 173 x10^3/uL (140-400); RED BLOOD COUNT 4.17 x10^6/uL (3.50-5.40); RED CELL DISTRIBUTION WIDTH 13.8 % (11.5-14.5); WHITE BLOOD COUNT 3.9 x10^3/uL (4.0-11.0)
[2021-11-07] MEDS ORDERED: IV NORMAL SALINE 1000ML BAG 1,000 ML IV SCH (22:00)
[2021-11-07] MEDS ORDERED: ONDANSETRON PF 4 MG/2 ML VIAL. IVP ONE (22:00)
[2021-11-07] MEDS ORDERED: FAMOTIDINE 20 MG/2 ML VIAL IVP ONE (22:00)
[2021-11-07] MEDS ORDERED: KETOROLAC 30 MG/ML VIAL. IVP ONE (22:00)
[2021-11-07] MEDS ORDERED: IOHEXOL 300 MG/ML 100ML VIAL. IV ONE (22:00)
[2021-11-07] MEDS ORDERED: CONTRAST GIVEN. MC PRN (22:00)
[2021-11-07 22:04] LABS: CALCIUM 7.6 mg/dL (8.5-10.1); CREATININE 0.6 mg/dL (0.6-1.0); GFR 147.4
[2021-11-07 22:09] LABS: ALBUMIN 3.5 g/dL (3.4-5.0); ALBUMIN/GLOBULIN RATIO 0.8 (1.0-1.7); TOTAL BILIRUBIN 0.4 mg/dL (0.2-1.0); TOTAL PROTEIN 7.7 g/dL (6.4-8.2)
--- NOTE | 2021-11-07 22:25 | RAD ---
Exam: CT of abdomen and pelvis with contrast INDICATION: Abdominal pain, vomiting, diarrhea, flank pain TECHNIQUE: Sequential axial images through the abdomen and pelvis obtained following the administrati on of 75 mL of Omni 300 IV contrast. Sagittal and coronal reformatted images were reconstructed from the axial data and reviewed. Exposure: One or more of the following in the visualized dose reduction techniques were utilized for this examination: 1. Automated exposure control 2. Adjustment of the MA and/or KV according to patient size 3. Use of iterative of reconstructive technique Comparisons: None FINDINGS: Heart size is normal. No pericardial. Visualized lung bases are clear. No pleural effusion. Liver, spleen, pancreas, gallbladder and adrenals are unremarkable. No perinephric inflammation or hydronephrosis. No renal or ureteral calculi are identified. Bladder is decompressed not well evaluated. Uterus is not enlarged. Small amount of free fluid in the pelvis. There is mucosal thickening and hyperenhancement involving the small bowel loops in the pelvis. Mesenteric stranding is also seen in the pelvis. Remainder large and small bowel are unremarkable. Appendix is normal. No free intra-abdominal air or fluid. No obstr uction. Abdominal aorta has a normal course and caliber. Abdominal vasculature is patent. No enlarged intra-abdominal lymph nodes are identified. Irregularity at the right sacroiliac joint. No suspicious osseous lesions or acute fractures. IMPRESSION: 1. Inflammatory changes in the pelvis with small amount of free fluid and mucosal hyperenhancement s mall bowel loops in the pelvis. Findings could relate to underlying pelvic inflammatory disease. Ileana elate with physical exam/symptomatology. 2. Irregularity at the right sacroiliac joint representing unilateral sacroiliitis. Recommend MRI of the pelvis to exclude infection. Electronically signed by: Rosie Lee MD (11/07/2021 10:23 PM) [facility]
[2021-11-07 22:56] LABS: INFLUENZA A PATIENT NEGATIVE (NEGATIVE); INFLUENZA B PATIENT NEGATIVE (NEGATIVE)
[2021-11-07] MEDS ORDERED: AZITHROMYCIN 250 MG TABLET. PO ONE (23:00)
[2021-11-07] MEDS ORDERED: cefTRIAXone IV Push 1 GM VIAL. IVP ONE (23:00)
[2021-11-07] MEDS ORDERED: DOXYCYCLINE HYCLATE 100 MG in IV DEXTROSE 5% 100ML 100 ML IV ONE (23:00)
--- NOTE | 2021-11-08 | RAD ---
EXAM: ULTRASOUND PELVIS INDICATION: Abnormal CT. PAD, pain COMPARISON: CT abdomen pelvis 11/07/2021 TECHNIQUE: Transvaginal sonography was performed. FINDINGS: The uterus measures 7.7 x 5.4 x 3.6 cm. The endometrium measures 5.3 mm. There is no focal myometrial abnormality. There are prominent parametrial vessels, nonspecific. The right ovary measures 2.9 x 1.9 x 1.7 cm. The left ovary measures 2.4 x 1.8 x 1.7 cm. Normal blood flow seen in both ovaries. There is trace free fluid in the pelvis, nonspecific. No fluid collection . IMPRESSION: Unremarkable pelvic ultrasound. No acute abnormality. Electronically signed by: Linda Shankar MD (11/07/2021 11:58 PM) [facility]
[2021-11-08] MEDS ORDERED: ONDANSETRON PF 4 MG/2 ML VIAL. IVP ONE (01:00)
[2021-11-08] MEDS ORDERED: fentaNYL PF VIAL 100 MCG/2 ML VIAL IVP ONE (01:00)
[2021-11-08] MEDS ORDERED: IV NORMAL SALINE 1000ML BAG 1,000 ML IV SCH (01:30)
[2021-11-08] MEDS ORDERED: ONDANSETRON PF 4 MG/2 ML VIAL. IVP PRN (01:30)
[2021-11-08 02:00] VITALS: BP 101/72
--- NOTE | 2021-11-08 02:03 | NUR ---
Admit from ER to [address] [place] [address] room 656 via [facility]. Stood and ambulated from [facility] to bed in room independently. Steady gait. A/O x 4. Pleasant. Cooperative. Admit as Observation Med/Surg. Orientated to room and call light. Reviewed POC to include MRI. Verbalized understanding. Denies pain at this time. Fentanyl given in ER. Spoke with patient's mother, Katharina, , per patient's request. Resting in bed. Eating box lunch. Call light at hand.
[2021-11-08] MEDS: fentaNYL PF VIAL 100 MCG/2 ML VIAL IVP PRN ×2 (03:25→09:41)
[2021-11-08 07:00] VITALS: BP 89/50
[2021-11-08 10:55] VITALS: BP 97/62
[2021-11-08] MEDS ORDERED: DOXY100C3 PO (11:17)
[2021-11-08] MEDS ORDERED: OXYC-325 PO (11:17)
--- NOTE | 2021-11-08 11:42 | SSS ---
DATE OF SERVICE: 11/08/2021 ADMIT DATE: 11/07/2021 CHIEF COMPLAINT: Abdominal pain. HISTORY OF PRESENT ILLNESS: The patient is a pleasant 26-year-old female who presents with abdominal pain. It is in the pelvic region. While in the ER, we have noticed that she has abnormal imaging. We suspect she has pelvic inflammatory disease. She was given some antibiotics in the ER. Today, I saw and examined her. She is doing well and wants to go home, I am going to discharge on p.o. Augmentin and doxycycline. PAST MEDICAL HISTORY: Anxiety, depression, suicidal attempt, eye surgery, D and C, breast reduction, and marijuana use. ALLERGIES: Fluoxetine and haloperidol. FAMILY HISTORY: Diabetes. SOCIAL HISTORY: She does not drink or take drugs or smoke other than marijuana. MEDICATIONS: Reviewed. Please refer to the MRAD. REVIEW OF SYSTEMS: GENERAL: No history of weight change, weakness or fevers. SKIN: No bruising, hair changes or rashes. EYES: No blurred, double or loss of vision. NOSE AND THROAT: No history of nosebleeds, hoarseness or sore throat. HEART: No history of palpitations, chest pain or shortness of breath on exertion. LUNGS: Denies cough, hemoptysis, wheezing or shortness of breath. GASTROINTESTINAL: Denies changes in appetite, nausea, vomiting, diarrhea or constipation. GENITOURINARY: No history of frequency, urgency, hesitancy or nocturia. NEUROLOGIC: Denies history of numbness, tingling, tremor or weakness. PSYCHIATRIC: No history of panic, anxiety or depression. ENDOCRINE: No history of heat or cold intolerance, polyuria or polydipsia. EXTREMITIES: Denies muscle weakness, joint pain, pain on walking or stiffness. PHYSICAL EXAMINATION: VITALS: Within normal limits and are stable. GENERAL: No apparent distress. Alert and oriented. HEENT: Normal cephalic atraumatic, external auditory canals are patent EYES: Extraocular muscles are intact, pupils are equally round and reactive to light and accommodation MUSCULOSKELETAL: Well developed, well nourished, good range of motion ENDOCRINE: No thyromegaly was palpated LYMPHATICS: No cervical chain or axillary nodes were noted HEMATOPOIETIC: No bruising NECK: Supple, no JVD, no thyromegaly was noted. LUNGS: Clear to auscultation in all lung lee without rhonchi or wheezing. HEART: RRR, S1, S2 present. Peripheral pulses intact, no obvious murmurs were noted. ABDOMEN: Soft, nontender. Positive bowel sounds no organomegaly, normal bowel sounds. EXTREMITIES: Without any cyanosis, clubbing, or edema. Pedal pulses intact, Homans sign is negative. NEUROLOGIC: Normal speech, normal tone. A and O x 3, moves all extremities, no obvious focal deficits. PSYCHIATRIC: Normal affect, normal mood. Stable. SKIN: No ulcerations or rashes, good skin turgor, no jaundice. VASCULAR: Good capillary refill, neurovascular bundle appears to be intact. IMAGING STUDIES: CT of the abdomen shows pelvic inflammatory disease. ASSESSMENT AND PLAN: Resolving pelvic inflammatory disease. We will go ahead and discharge on p.o. Augmentin and doxycycline and I gave her a prescription for Percocet. DISPOSITION: Home. ACTIVITY: As tolerated. DIET: Low sodium. MEDICATIONS: Please see the MRAD. Total time [address]: Leanna TID: [id number]
--- NOTE | 2021-11-08 13:22 | NUR ---
call to dr salas, advised that an MRI was ordered after the discharge order was placed. advised to cancel the MRI, as he states it is not necessary.
--- NOTE | 2021-11-08 13:23 | NUR ---
SS following for discharge planning. SS reviewed pt chart and discussed with pt RN. Pt is from home and is currently on room air. MRI ordered. COVID19 negative. Discharge order on the chart for home with self care.
--- NOTE | 2021-11-08 13:45 | NUR ---
PT DISCHARGED HOME WITH SELF CARE, DISCHARGE REVIEWED WITH PATIENT, NO QUESTIONS. PT TRANSPORTED OFF UNIT WITH ALL BELONGINGS.
== END 2021-11-08 13:45 | disposition home or self-care (01) ==
LOC: ER 21:16 → INTOOBSV 11-08 00:28 → 5 SOUTH 11-08 00:28 → 6 SOUTH 11-08 01:20
PROVIDERS: ADMIT Student in an Organized Health Care Education/Training Program; ATTEND Student in an Organized Health Care Education/Training Program
DX: N73.9 Female pelvic inflammatory disease, unspecified (principal); Z20.822 Contact with and (suspected) exposure to COVID-19; N73.0 Acute parametritis and pelvic cellulitis; M46.1 Sacroiliitis, not elsewhere classified; F41.9 Anxiety disorder, unspecified; F12.90 Cannabis use, unspecified, uncomplicated; R11.2 Nausea with vomiting, unspecified; M54.9 Dorsalgia, unspecified; F32.9 Major depressive disorder, single episode, unspecified; Z79.899 Other long term (current) drug therapy; Z98.890 Other specified postprocedural states; Z91.51 Personal history of suicidal behavior
CPT/HCPCS: 36415; 74177; 76856; 80053; 80307; 81001; 81025; 83690; 85025; 87086; 87428; 87491; 87591; 96361; 96365; 96366; 96375; 96376; 99285; G0378; J0696; J1885; J2405; J3010; J3490; J7030; J7060; Q0111; Q9967; G0379